=== PATIENT | female | born 1965 | race Caucasian/White ===

== ENCOUNTER → 2016-05-06 | Outpatient (CLI) | payer BC ==
[~2016-05-06] MED LIST: EFF/375 PO; IBUP600T44 PO; LISI-729 PO
== END | disposition home or self-care (01) ==
LOC: C.PATHSPEC 10:57
PROVIDERS: ATTEND Obstetrics & Gynecology
DX: R87.613 High grade squamous intraepithelial lesion on cytologic smear of cervix (HGSIL) (principal); N87.1 Moderate cervical dysplasia

== ENCOUNTER 2016-06-26 10:58 | Emergency (ER) | payer BC ==
[~2016-06-26] VITALS: Ht 162.6 cm; Wt 73.3 kg
[2016-06-26 11:06] VITALS: TEMP 36.8; Ht 162.6 cm; Wt 73.3 kg
[2016-06-26] MEDS ORDERED: IBUPROFEN 600 MG TAB PO STA (11:20)
[2016-06-26] MEDS ORDERED: EFF/375 PO (11:25)
[2016-06-26] MEDS ORDERED: LISI-729 PO (11:25)
--- NOTE | 2016-06-26 11:46 | EMERGENCY ROOM VISIT NOTE ---
History Report prepared by Gabriele: Shalini Monsalve Under the Supervision of: Dr. Alexander Walsh M.D. First contact with patient: 11:15 Chief Complaint: ANKLE PAIN Stated Complaint: FALL/ANKLE PAIN History of Present Illness The patient is a 50 year old female who presents to the Emergency Room with complaints of persistent bilateral ankle pain starting 0545 this morning. She presents to the ED by EMS and received fentanyl en route. She fell down 3-4 steps. She did not fall head over heels but landed on her side. She heard some cracking on the way down. She was initially able to get herself to her bed, but upon waking up later she was unable to walk. She reports pain on the outside of her ankles and swelling. Her left ankle is worse than her right. She denies any knee, hip, back, arm, neck, head, or chest injury. She is not on any blood thinners. Source of History: patient Onset: 0545 this morning Position: ankle (bilateral) Quality: other (pain, swelling) Timing: other (persistent) Associated Symptoms: No back pain, No chest pain, No neck pain Note: Pt denies any knee, hip, arm, or head injury Review of Systems See HPI for pertinent positives & negatives. A total of 10 systems reviewed and were otherwise negative. Past Medical & Surgical Medical Problems: (1) Hypertension Family History No pertinent family history stated. Social History Smoking Status: Never Smoker Marital Status: Occupation Status: employed Current/Historical Medications Scheduled Lisinopril (Prinivil), 1 TAB PO DAILY Venlafaxine Hcl (Effexor), 37.5 MG PO DAILY Scheduled PRN Ibuprofen (Motrin), 600 MG PO Q6H PRN for Pain Allergies Coded Allergies: No Known Allergies (Unverified , 06/26/16) Physical Exam Vital Signs Date Time Temp Pulse Resp B/P Pulse Ox O2 Delivery O2 Flow Rate FiO2 06/26/16 13:17 85 16 149/91 99 06/26/16 11:06 36.8 74 12 135/92 100 Room Air Physical Exam GENERAL: Patient is in no acute distress. HEENT: No acute trauma, normocephalic atraumatic, mucous membranes moist, no nasal congestion, no scleral icterus. NECK: No stridor, no adenopathy, no meningismus, trachea is midline, no posterior C spine tenderness. LUNGS: Clear to auscultation bilaterally, no wheeze, no rhonchi, breath sounds equal. HEART: Without murmurs gallops or rubs, regular rate and rhythm. ABDOMEN: Soft, nontender, bowel sounds positive, no hernias, no peritonitis. EXTREMITIES: No evidence for upper extremity trauma, swelling and tenderness to both lateral ankles, no gross deformities, both knees and feet are nontender. NEUROLOGIC: Oriented x 3, no acute motor or sensory deficits, no focal weakness. SKIN: No rash, no jaundice, no diaphoresis. Medical Decision & Procedures ER Provider Diagnostic Interpretation: X-ray results as stated below per interpretation by me and the radiologist: LEFT ANKLE MIN 3 VIEWS ROUTINE CLINICAL HISTORY: FALL, PAIN COMPARISON: None. DISCUSSION: Oblique nondisplaced fracture distal fibula. Mild associated soft tissue edema. Ankle mortise is aligned anatomically. The subtalar joint is intact. IMPRESSION: Nondisplaced oblique fracture distal fibula Electronically signed by: Garcia Meyer M.D. 06/26/2016 12:10 PM Dictated Date/Time: 06/26/2016 12:09 PM RIGHT ANKLE MIN 3 VIEWS ROUTINE CLINICAL HISTORY: FALL, PAIN Right pain COMPARISON: None. DISCUSSION: The bones and joint spaces appear intact. There is no evidence of fracture, dislocation or bony disease. There is no evidence for soft tissue swelling. IMPRESSION: Negative study. Electronically signed by: Garcia Meyer M.D. 06/26/2016 12:09 PM Dictated Date/Time: 06/26/2016 12:08 PM Medications Administered Medications (Trade) Dose Ordered Sig/Dylan Route Start Time Stop Time Status Last Admin Dose Admin Ibuprofen (Motrin Tab) 600 mg NOW STAT PO 06/26/16 11:20 06/26/16 11:21 DC 06/26/16 11:32 600 MG ED Course 1118: The patient was evaluated in room B3. A complete history and physical exam was performed. 1120: Ibuprofen 600 mg PO. 1236: I reevaluated the patient. I discussed results and discharge instructions : she verbalized understanding and agreement. The patient is ready for discharge. Medical Decision Differential diagnoses considered include ankle sprain or fracture, foot fracture, knee fracture; head, neck, or chest trauma. The patient presents with left more so than right ankle pain. She had fallen several hours ago. There is no evidence clinically for injury to the head, neck , chest, back, abdomen or upper extremities. The hips and knees seem uninjured. Films of the ankles were done, there is an oblique fracture to the left distal fibula, no significant bony dislocation. The right ankle is without fracture. On exam, the patient was neurovascularly intact distally in the lower extremities. The patient was given oral Motrin, she was given ice packs. She had a splint applied to the left ankle, she was given crutches. The patient is being discharged to follow with orthopedics. She is to stay off of the foot and keep it elevated. Impression Primary Impression: Ankle fracture, left Additional Impressions: Right ankle sprain Fall Scribe Attestation The scribe's documentation has been prepared under my direction and personally reviewed by me in its entirety. I confirm that the note above accurately reflects all work, treatment, procedures, and medical decision making performed by me. Departure Information Dispostion Home / Self-Care Prescriptions Ibuprofen (Motrin) 600 Mg Tab 600 MG PO Q6H Y for Pain, #20 TAB With Food Prov: Alexander Walsh M.D. 06/26/16 Referrals Terri Deng (PCP) Forms HOME CARE DOCUMENTATION FORM, IMPORTANT VISIT INFORMATION Patient Instructions My [facility] [employer] Additional Instructions motrin 600 mg every 6 hours as needed for pain tylenol for pain also can be use wear splint for now use crutches keep the leg elevated call orthopedics Tuesday for an appt return if worsening Problem Qualifiers
--- NOTE | 2016-06-26 12:10 | DIAGNOSTIC IMAGING REPORT ---
RIGHT ANKLE MIN 3 VIEWS ROUTINE CLINICAL HISTORY: FALL, PAIN Right pain COMPARISON: None. DISCUSSION: The bones and joint spaces appear intact. There is no evidence of fracture, dislocation or bony disease. There is no evidence for soft tissue swelling. IMPRESSION: Negative study. Electronically signed by: Garcia Meyer M.D. 06/26/2016 12:09 PM Dictated Date/Time: 06/26/2016 12:08 PM
--- NOTE | 2016-06-26 12:11 | DIAGNOSTIC IMAGING REPORT ---
LEFT ANKLE MIN 3 VIEWS ROUTINE CLINICAL HISTORY: FALL, PAIN COMPARISON: None. DISCUSSION: Oblique nondisplaced fracture distal fibula. Mild associated soft tissue edema. Ankle mortise is aligned anatomically. The subtalar joint is intact. IMPRESSION: Nondisplaced oblique fracture distal fibula Electronically signed by: Garcia Meyer M.D. 06/26/2016 12:10 PM Dictated Date/Time: 06/26/2016 12:09 PM
[2016-06-26] MEDS ORDERED: IBUP600T44 PO (12:40)
[2016-06-26 13:17] VITALS: BP 149/91; PULSE 85; O2SAT 99
== END 2016-06-26 13:18 | disposition home or self-care (01) ==
LOC: EDBD 10:58 → C.EDB 10:59
DX: S82.892A Other fracture of left lower leg, initial encounter for closed fracture (principal); S93.401A Sprain of unspecified ligament of right ankle, initial encounter; W10.8XXA Fall (on) (from) other stairs and steps, initial encounter; I10 Essential (primary) hypertension

== ENCOUNTER 2019-04-15 18:59 | Inpatient (IN) ==
[2019-04-15] MEDS ORDERED: fentaNYL citrate 100 MCG/2 ML VIAL IV STA ×2 (19:15→20:35)
[2019-04-15] MEDS ORDERED: ONDANSETRON INJ 2 MG/ML 2 ML VIAL IV STA (19:15)
[2019-04-15 19:21] LABS: Basophils # (auto) 0.02 K/uL (0-0.2); Basophils % (auto) 0.3 %; Eosinophils # (auto) 0.09 K/uL (0-0.5); Eosinophils % (auto) 1.2 %; Hematocrit (blood only) 38.4 % (37-47); Hemoglobin 13.7 g/dL (12.0-16.0); Immature Granulocytes # (auto) 0.01 K/uL (0.00-0.02); Immature Granulocytes % (auto) 0.1 %; Lymphocytes # (auto) 2.75 K/uL (1.2-3.4); Lymphocytes % (auto) 37.2 %; Mean Corpuscular Hemoglobin 32.3 pg (25-34); Mean Corpuscular Hgb Conc 35.7 g/dL (32-36); Mean Corpuscular Volume 90.6 fL (80-100); Monocytes # (auto) 0.52 K/uL (0.11-0.59); Neutrophils # (auto) 4.01 K/uL (1.4-6.5); Neutrophils % (auto) 54.2 %; Platelet Count 224 K/uL (130-400); RDW Coefficient of Variation 11.7 % (11.5-14.5); RDW Standard Deviation 38.9 fL (36.4-46.3); Red Blood Count 4.24 M/uL (4.2-5.4)
[2019-04-15 19:37] LABS: Albumin Level 3.6 gm/dl (3.4-5.0); Aspartate Aminotransferase 72 U/L (15-37); BUN Creatinine Ratio 22.2 (10-20); Blood Urea Nitrogen 19 mg/dl (7-18); Calcium 9.6 mg/dl (8.5-10.1); Carbon Dioxide 28 mmol/L (21-32); Chloride 105 mmol/L (98-107); Creatinine Clr Calc Pharmacy 80.3 ml/min; Est GFR (African American) 91.3; Est GFR (Non-African American) 78.8; Glucose 116 mg/dl (70-99); Lipase 237 U/L (73-393); Potassium 3.4 mmol/L (3.5-5.1); Sodium 138 mmol/L (136-145)
--- NOTE | 2019-04-15 19:39 | XRay Report ---
SINGLE VIEW CHEST CLINICAL HISTORY: Atypical chest pain. FINDINGS: An AP, portable, upright chest radiograph is obtained. No prior studies are available for c omparison at the time of dictation. The examination is degraded by portable technique and patient rot ation. The cardiomediastinal silhouette is unremarkable. There is mild bibasilar atelectasis. The radha ngs and pleural spaces are otherwise clear. No pneumothorax is seen. The bony thorax is grossly intac t. IMPRESSION: No active disease in the chest. ACT 112: Negative or not required by law. Electronically signed by: Alexander Anne M.D. 04/15/2019 7:37 PM
[2019-04-15 19:42] LABS: Alanine Aminotransferase 56 U/L (12-78); Albumin Globulin Ratio 0.9 (0.9-2); Alkaline Phosphatase 83 U/L (45-117); Bilirubin,Total 0.3 mg/dl (0.2-1); Total Protein 7.6 gm/dl (6.4-8.2); Troponin I < 0.015 ng/ml (0-0.045)
[2019-04-15 19:43] LABS: iSTAT Creatinine 0.8 mg/dl (0.6-1.3); iSTAT Hemoglobin 13.3 g/dl (12.0-16.0); iSTAT Ionized Calcium 1.2 mmol/l (1.12-1.32); iSTAT Potassium 3.4 mmol/L (3.3-5.0)
[2019-04-15 19:52] LABS: Partial Thromboplastin Ratio 0.9; Partial Thromboplastin Time 25.9 Seconds (21.0-31.0); Prothrombin Time 10.7 Seconds (9.0-12.0)
[2019-04-15] MEDS ORDERED: OPTIRAY 320 125ml IV PRN (19:54)
--- NOTE | 2019-04-15 20:12 | CT Scan Report ---
CT ANGIOGRAM OF THE CHEST COMBO; CT ANGIOGRAM OF THE ABDOMEN AND PELVIS CLINICAL HISTORY: Atypical chest pain. Back pain. COMPARISON STUDY: Chest x-ray dated 04/15/2019. TECHNIQUE: Unenhanced axial CT of the chest is obtained. Following the IV administration of 119 cc of Optiray 320, CT angiogram of the chest, abdomen, and pelvis was performed from the thoracic inlet to the proximal femora. Images are reviewed in the axial, sagittal, and coronal planes. 3-D MIPS images are created and assessed. IV contrast was administered without complication. A dose lowering techniq ue was utilized adhering to the principles of ALARA. CT DOSE: 980.49 mGy.cm FINDINGS: CHEST: Thyroid: Imaged portions of the thyroid gland are normal in size and attenuation. Thoracic aorta: No intramural hematoma is seen on the unenhanced series. The thoracic aorta is normal in course and caliber. The aortic arch demonstrates standard 3-vessel anatomy. No dissection is seen . The arch vessels are widely patent. Pulmonary vasculature: The pulmonary trunk is normal in caliber. There are no filling defects identif ied in the main, lobar, or segmental pulmonary vessels to suggest pulmonary embolus. Heart: The heart is normal in size and configuration, and without pericardial effusion. Lungs and pleural spaces: The lungs and pleural spaces are clear noting dependent atelectasis. The tr achea and central airways are patent. Mediastinum: There is no mediastinal lymphadenopathy. Jocelyn: Clear. Axillae: There is no axillary lymphadenopathy. Bony thorax: No destructive bony lesions are identified. ABDOMEN AND PELVIS: Liver: The contrast-enhanced liver is normal in size, contour, and attenuation. There is no intrahepa tic biliary ductal dilatation. Gallbladder: Gallstones are noted. There is no CT evidence of acute cholecystitis. Spleen: Normal in size and attenuation noting heterogeneous arterial phase enhancement. Pancreas: Unremarkable. Adrenal glands: Unremarkable. Kidneys: The contrast enhanced kidneys are normal in size and without hydronephrosis. The kidneys enh ance symmetrically. Abdominal aorta and iliac arteries: The abdominal aorta is normal in course and caliber. No dissectio n is seen. The iliac arteries are widely patent bilaterally. Major branches of the abdominal aorta: The celiac trunk, superior mesenteric, and inferior mesenteric arteries are widely patent. Hepatic arterial anatomy is conventional. The splenic artery is patent. Single bilateral renal arteries are widely patent. Bowel: There is mild colonic fecal retention. No bowel obstruction is seen. The appendix is well-vis ualized and normal. Peritoneum: There is no intraperitoneal free air or abdominal ascites. Lymphadenopathy: None. Pelvic viscera: The bladder, uterus, and adnexa are normal as visualized. Skeletal structures: No destructive bony lesions are seen. IMPRESSION: 1. There is no aneurysm or dissection seen involving the thoracic or abdominal aorta. 2. There is no evidence of pulmonary embolus in the main, lobar, or segmental pulmonary arteries. 3. The lungs are clear 4. Unremarkable CT angiogram of the major branches of the abdominal aorta. 5. No acute infectious or inflammatory findings are identified in the abdomen or pelvis. 6. Cholelithiasis. 7. Additional findings as above. ACT 112: Negative or not required by law. Electronically signed by: Alexander Anne M.D. 04/15/2019 8:11 PM
[2019-04-15] MEDS ORDERED: KETOROLAC TROMETHAMINE 15 MG/ML VIAL IV STA (20:35)
[2019-04-15] MEDS ORDERED: FAMOTIDINE 20MG IV PUSH 20 MG/5 ML SYR IV STA (20:35)
[2019-04-15] MEDS ORDERED: DICYCLOMINE HCL 10 MG CAP PO ONE (20:35)
[2019-04-15] MEDS ORDERED: ASPIRIN 81 MG CHEW PO STA (20:51)
--- NOTE | 2019-04-15 20:56 | History & Physical Report ---
Date of Service April 15, 2019 Assessment & Plan (1) Atypical chest pain: Admit to PCU on telemetry for observation for atypical chest pain, Vital signs every 4 hours, Given aspirin 324 mg x 1 in the ER Continue aspirin 81 mg p.o. every morning, Lipid panel pending Hemoglobin A1c pending Troponin x3 with EKG to rule out acute coronary syndrome, TTE pending, based on results consider consulting cardiology in a.m., Continue Nitropaste or nitroglycerin for chest pain and give only if blood p ressure is above 120/80 Continue monitoring blood pressure every 4 hours, Continue home medicine lisinopril 10 mg p.o. every morning, Started hydralazine 5 mg p.o. 3 times daily as needed for elevated blood pressure above 160/90. DVT prophylaxis Lovenox 40 mg subacute daily, Full code Present on Admission?: Yes (2) Abdominal pain: Patient received pain management with ketorolac 15 mg IV x1, fentanyl 50 MCG's x2, Zofran 4 mg IV x1 famotidine 20 mg IV x1 , and Bentyl 10 mg p.o. x1 in the ER Patient states that this regimen helped her pain, Pending KUB since patient abdomen is mildly distended and tender on palpation. No rebound tenderness noted or guarding. Patient states that she feels very gassy. Continue pain management and antinausea management. Abdominal pain could be related to constipation or indigestion. If KUB positive for constipation MiraLAX powder 17 g p.o. daily as needed is ordered, Continue Bentyl 10 mg p.o. twice daily, For pain Toradol 15 mg IV every 6 hours, Present on Admission?: Yes (3) Hypertension: Continue lisinopril 10 mg p.o. every morning, Continue monitoring states blood pressure was mildly elevated in the ER every 4 hours Present on Admission?: Yes (4) Depression: Stable, continue venlafaxine 37.5 mg p.o. every morning. Present on Admission?: Yes (5) Hypokalemia: Potassium is 3.4, replenished with normal saline +20 M EQ of KCl at 80 cc/h for 1 L. Repeat potassium in a.m. and replenish as necessary. Present on Admission?: Yes History of Present Illness Chief Complaint: Chest pain Primary Care Provider: ASUNCION Perez The patient is a 53 years old female with past medical history of hypertension and depression who presents to the emergency room with a complaint of chest pain that started this morning first in her back and then radiated to her middle chest and then settled down in her abdomen. Patient reports having 1 bowel movement yesterday. Patient said that this is normal for her. Patient also said that this pain occurred all of a sudden and lasted pretty much several hours. Patient denies smoking history. Denies any recent sick contact or travel. Patient denies fever, chills, abdominal pain, frequency, urgency, syncope, near syncope. The labs are reviewed: Sodium 138, potassium 3.4, chlo ride 105, anion gap 5, BUN 19, creatinine 0.84, GFR 78.8, calcium 9.6, total bilirubin 0.3, AST 72, ALT 56, alkaline phosphatase 83, troponin 0.015, total protein 7.6, albumin 3.6, globulin 4, lipase 237, TSH pending. CTA of the chest there is no aneurysm or dissection seen involving the thoracic or abdominal aorta. There is no evidence of pulmonary embolus in the main lobar or segmental pulmonary arteries. The lungs are clear. Unremarkable CT angiogram of the major branches of the abdominal aorta. No acute infectious or or inflammatory findings are identified in the abdomen or pelvis, cholelithiasis. Chest x-ray showed no active disease in the chest. The decision was made to admit patient to PCU on telemetry for observation of the chest pain versus acute coronary syndrome. Allergies Allergy/AdvReac Type Severity Reaction Status Date / Time No Known Allergies Allergy Verified 04/15/19 19:33 Home Medications Home Medications Medication Instructions Recorded Confirmed Type lisinopril 10 mg PO QAM 04/15/19 04/15/19 History venlafaxine 37.5 mg PO QAM 04/15/19 04/15/19 History Past Med/Surg History Medical History Hypertension (Chronic) Family History Other No significant family history Social History Preferred Language: Divehi Feels Safe at Home: Yes Smoking Status: Never smoker Review of Systems Review of Systems: All systems reviewed & are unremarkable except as noted in HPI & below Physical Exam Constitutional: WD/WN, vitals as above well developed and + ill appearing Eyes: PERRL, conjunctivae normal, anicteric sclerae ENMT: external ear and nose normal, oropharynx normal Neck: trachea midline, no thyromegaly Respiratory: normal respiratory effort, lungs clear to auscultation Cardiovascular: RRR, no murmur, no edema Gastrointestinal (Abdomen): Inspection/Auscultation: + abdomen distended Percussion/Palpation: + abdomen tender, abdomen soft and + tympanic to percussion Musculoskeletal: no cyanosis or clubbing, extremities motor strength 5/5 Skin: no rashes, warm and dry Neurologic: patellar DTR's 2+ bilat, sensation intact Lymphatic: no cervical or axillary lymphadenopathy Results & Data Vital Signs (Past 12 Hours) Vital Signs Temp Pulse Resp BP Pulse Ox 04/15/19 19:33 99 04/15/19 19:07 36.3 C L 79 18 161/100 H 99 Code Status & VTE Plan Code Status Full code VTE Prophylaxis Plan VTE Prophylaxis will be ordered: Yes PG Care Time/CCT Total # of Minutes Spent Total Time Spent with Patient: Total time spent is greater than 50% in coordination of care (as documented) at patient's floor/unit and/or counseling patient: Coding Level of Care Code 89248 Initial Inpt Care Lvl 3 Diagnoses Atypical chest pain R07.89 Abdominal pain R10.9 Abdominal location: unspecified location Hypertension I10 Depression F32.9 Hypokalemia E87.6 (1) Abdominal pain Abdominal location: unspecified location Qualified Code(s): R10.9 - Unspecified abdominal pain
[2019-04-15] MEDS ORDERED: ONDANSETRON INJ 2 MG/ML 2 ML VIAL IV PRN (22:02)
[2019-04-15] MEDS ORDERED: MAGNESIUM HYDROXIDE SUSP 30 ML UDC PO PRN (22:02)
[2019-04-15] MEDS ORDERED: ACETAMINOPHEN 325 MG TAB PO PRN (22:02)
[2019-04-15] MEDS ORDERED: NSS + 20MEQ KCL 20 MEQ/1,000 ML BAG IV SCH (22:02)
[2019-04-15] MEDS ORDERED: HydrALAZINE 10 MG TAB PO PRN (22:02)
[2019-04-15] MEDS ORDERED: NITROGLYCERIN SL 0.4 MG/TAB TAB SL PRN ×2 (22:02)
[2019-04-15] MEDS ORDERED: FAMOTIDINE 20 MG in SYRINGE 3 ML IV SCH (22:02)
[2019-04-15] MEDS ORDERED: ALUMINUM/MAGNESIUM SUSP 30 ML UDC PO PRN (22:02)
[2019-04-15] MEDS ORDERED: POLYETHYLENE (MIRALAX) 17 GM PACK PO PRN (22:02)
--- NOTE | 2019-04-15 22:04 | Emergency Department Note ---
Entered by Erika Khan acting as a scribe for Daniele Correa M.D. History of Present Illness General Chief complaint: Chest Pain Stated complaint: BACK PAIN, UPPER GASTRIC PAIN, MILD SOB Time Seen by Provider: 04/15/19 19:08 Source: patient History of Present Illness Onset (ago): hour(s) (earlier today) Location: chest Pain Consistency: + other (worsening) Current Pain Intensity: 9 Quality: + other (tightness) Associated symptoms: + denies other symptoms (leg pain), + diaphoresis and + nausea/vomiting (nausea); no cough and no fever/chills The patient is a 53 year old F who presents to the Emergency Room with complaints of worsening chest pain that started earlier today. The patient states that she was doing some light cleaning today. She notes that she then started to experience pain in the middle of her back. She adds that the pain radiated to her upper abdomen. She notes that she then developed chest pain. She describes her pain as a tightness. She rates her current pain as 9 out of 10. She states that she was given aspirin and nitroglycerin in the ambulance to no relief. She notes that she is also currently experiencing nausea and sweating. She states that she has never experienced these symptoms before. She denies that she is currently experiencing a fever, coughing, and leg pain. She states that she has a family history of heart disease. She notes that 5 months ago, she was started on a heart loop monitor, by her closing agent, Dr. Khan, due to experiencing arrhythmias. She notes that she has a history of HTN. She adds that she took her medications today, including Lisinopril. She denies a history of drinking alcohol, smoking, and being on any recent travel. Home Medications Home Medications Medication Instructions Recorded Confirmed Type lisinopril 10 mg PO QAM 04/15/19 04/15/19 History venlafaxine 37.5 mg PO QAM 04/15/19 04/15/19 History Allergies Allergy/AdvReac Type Severity Reaction Status Date / Time No Known Allergies Allergy Verified 04/15/19 19:33 Past Med/Surg History Medical History Hypertension (Chronic) Family History Other No significant family history Social History Preferred Language: [place] Feels Safe at Home: Yes Smoking Status: Never smoker Review of Systems See HPI for pertinent positives & negatives. and A total of 10 systems reviewed and were otherwise negative Physical Exam Vital Signs Vital Signs - 24 hr 04/15/19 19:07 04/15/19 19:15 04/15/19 19:33 Temperature 36.3 C L Temperature Source Oral Pulse Rate 79 Respiratory Rate 18 Respiratory Effort / Characteristics Non-Labored Respiratory Depth Normal Blood Pressure 161/100 H Blood Pressure Mean 120 Pulse Oximetry 99 99 Oxygen Delivery Method Room Air Room Air Room Air Sepsis Recent Fever Within 48 Hours No Sepsis New/Unexplained Change in Mental Status No Sepsis Action Taken by Nursing No Action Required GENERAL: Awake, alert, uncomfortable-appearing, writhing in bed HENT: Normocephalic, atraumatic. EYES: Normal conjunctiva. Sclera non-icteric. RESPIRATORY: Clear to auscultation. No wheezes. Normal respiratory effort. CARDIAC: Normal rate. Normal rhythm. Extremities warm and well perfused. GI: Soft, non-distended. Mild epigastric tenderness to palpation. No rebound or guarding. No masses. MUSCULOSKELETAL: Atraumatic. Chest examination reveals no tenderness. NEURO: Normal sensorium. No sensory or motor deficits noted. No facial droop. SKIN: Warm and dry. No rash or jaundice noted. Course Course 1909: The patient was evaluated in room B9. A complete history and physical exam was performed. 2026: I updated the patient on her test results and let her know of the plan for admission. 2038: I reviewed the patient's case with Dr. Malka Colbert, [facility] Hospitalist. She will evaluate the patient for further management. Administered Medications Discontinued Medications Aspirin (Aspirin Chew) 324 mg PO NOW STA Stop: 04/15/19 20:52 Last Admin: 04/15/19 21:17 Dose: 324 mg Documented by: [id number] Dicyclomine HCl (Bentyl) 10 mg PO NOW ONE Stop: 04/15/19 20:36 Last Admin: 04/15/19 20:45 Dose: 10 mg Documented by: [id number] Fentanyl Citrate (Fentanyl Citrate) 50 mcg IV NOW STA Stop: 04/15/19 19:16 Last Admin: 04/15/19 19:22 Dose: 50 mcg Documented by: [id number] Fentanyl Citrate (Fentanyl Citrate) 50 mcg IV NOW STA Stop: 04/15/19 20:36 Last Admin: 04/15/19 20:45 Dose: 50 mcg Documented by: [id number] Famotidine (Pepcid 20mg Iv Push) 20 mg in 5 mls @ 2.5 mls/min IV NOW STA Stop: 04/15/19 20:36 Last Admin: 04/15/19 20:45 Dose: 2.5 mls/min Documented by: [id number] Ioversol (Optiray 320 125ml) 119 ml IV ONCE PRN PRN Reason: Interaction Checking Stop: 04/19/19 19:53 Last Admin: 04/15/19 19:54 Dose: 119 ml Documented by: [id number] Ketorolac Tromethamine (Toradol) 15 mg IV NOW STA Stop: 04/15/19 20:36 Last Admin: 04/15/19 20:45 Dose: 15 mg Documented by: [id number] Ondansetron HCl (Zofran) 4 mg IV NOW STA Stop: 04/15/19 19:16 Last Admin: 04/15/19 19:22 Dose: 4 mg Documented by: [id number] Medical Decision Making Differential Diagnosis Differential diagnosis: Etiologies such as cardiac ischemia, aortic dissection, pulmonary embolism, pneumonia, pneumothorax, musculoskeletal, infections, pericarditis, myocarditis, esophageal rupture, gastrointestinal, as well as others were entertained. Medical Records Attestation: I reviewed the patient's medical records. Home Medications Current Medication List: was personally reviewed by me Laboratory Data Attestation: I reviewed the patient's lab results. Result diagrams: 04/15/19 18:55 04/15/19 18:55 Lab Results 04/15/19 04/15/19 04/15/19 Range/Units 18:55 18:55 18:55 WBC 7.40 (4.8-10.8) K/uL RBC 4.24 (4.2-5.4) M/uL Hgb 13.7 (12.0-16.0) g/dL POC Hgb (12.0-16.0) g/dl Hct 38.4 (37-47) % POC Hct (37-47) % MCV 90.6 (80-100) fL MCH 32.3 (25-34) pg MCHC 35.7 (32-36) g/dL RDW Std Deviation 38.9 (36.4-46.3) fL RDW Coeff of [place] 11.7 (11.5-14.5) % Plt Count 224 (130-400) K/uL MPV 10.0 (7.4-10.4) fL Immature Gran % (Auto) 0.1 % Neut % (Auto) 54.2 % Lymph % (Auto) 37.2 % [place] % (Auto) 7.0 % Eos % (Auto) 1.2 % Baso % (Auto) 0.3 % Immature Gran # (Auto) 0.01 (0.00-0.02) K/uL Neut # (Auto) 4.01 (1.4-6.5) K/uL Lymph # (Auto) 2.75 (1.2-3.4) K/uL [place] # (Auto) 0.52 (0.11-0.59) K/uL Eos # (Auto) 0.09 (0-0.5) K/uL Baso # (Auto) 0.02 (0-0.2) K/uL PT Cancelled INR Cancelled APTT Cancelled PTT Ratio Cancelled POC Sodium (135-144) mmol/L Sodium 138 (136-145) mmol/L POC Potassium (3.3-5.0) mmol/L Potassium 3.4 L (3.5-5.1) mmol/L POC Chloride (101-112) mmol/L Chloride 105 (98-107) mmol/L Carbon Dioxide 28 (21-32) mmol/L POC Total CO2 (24-31) mEq/l Anion Gap 5.0 (3-11) POC Anion Gap (16-25) mmol/L POC BUN (7-18) mg/dl BUN 19 H (7-18) mg/dl Creatinine 0.84 (0.6-1.2) mg/dl POC Creatinine (0.6-1.3) mg/dl Est Cr Clr Drug Dosing 80.3 ml/min Est GFR ( Amer) 91.3 Est GFR (Non-Af Amer) 78.8 BUN/Creatinine Ratio 22.2 H (10-20) Glucose 116 H (70-99) mg/dl POC Glucose (other) (70-99) mg/dl Calcium 9.6 (8.5-10.1) mg/dl POC Ioniz Calcium Rebel (1.12-1.32) mmol/l Total Bilirubin 0.3 (0.2-1) mg/dl AST 72 H (15-37) U/L ALT 56 (12-78) U/L Alkaline Phosphatase 83 (45-117) U/L Troponin I < 0.015 (0-0.045) ng/ml Total Protein 7.6 (6.4-8.2) gm/dl Albumin 3.6 (3.4-5.0) gm/dl Globulin 4.0 (2.5-4.0) gm/dl Albumin/Globulin Ratio 0.9 (0.9-2) Lipase 237 (73-393) U/L 04/15/19 04/15/19 Range/Units 19:28 19:36 WBC (4.8-10.8) K/uL RBC (4.2-5.4) M/uL Hgb (12.0-16.0) g/dL POC Hgb 13.3 (12.0-16.0) g/dl Hct (37-47) % POC Hct 39 (37-47) % MCV (80-100) fL MCH (25-34) pg MCHC (32-36) g/dL RDW Std Deviation (36.4-46.3) fL RDW Coeff of [place] (11.5-14.5) % Plt Count (130-400) K/uL MPV (7.4-10.4) fL Immature Gran % (Auto) % Neut % (Auto) % Lymph % (Auto) % [place] % (Auto) % Eos % (Auto) % Baso % (Auto) % Immature Gran # (Auto) (0.00-0.02) K/uL Neut # (Auto) (1.4-6.5) K/uL Lymph # (Auto) (1.2-3.4) K/uL [place] # (Auto) (0.11-0.59) K/uL Eos # (Auto) (0-0.5) K/uL Baso # (Auto) (0-0.2) K/uL PT 10.7 INR 1.0 APTT 25.9 PTT Ratio 0.9 POC Sodium 138 (135-144) mmol/L Sodium (136-145) mmol/L POC Potassium 3.4 (3.3-5.0) mmol/L Potassium (3.5-5.1) mmol/L POC Chloride 103 (101-112) mmol/L Chloride (98-107) mmol/L Carbon Dioxide (21-32) mmol/L POC Total CO2 27 (24-31) mEq/l Anion Gap (3-11) POC Anion Gap 12.0 L (16-25) mmol/L POC BUN 18 (7-18) mg/dl BUN (7-18) mg/dl Creatinine (0.6-1.2) mg/dl POC Creatinine 0.8 (0.6-1.3) mg/dl Est Cr Clr Drug Dosing ml/min Est GFR ( Amer) Est GFR (Non-Af Amer) BUN/Creatinine Ratio (10-20) Glucose (70-99) mg/dl POC Glucose (other) 117 H (70-99) mg/dl Calcium (8.5-10.1) mg/dl POC Ioniz Calcium Rebel 1.20 (1.12-1.32) mmol/l Total Bilirubin (0.2-1) mg/dl AST (15-37) U/L ALT (12-78) U/L Alkaline Phosphatase (45-117) U/L Troponin I (0-0.045) ng/ml Total Protein (6.4-8.2) gm/dl Albumin (3.4-5.0) gm/dl Globulin (2.5-4.0) gm/dl Albumin/Globulin Ratio (0.9-2) Lipase (73-393) U/L Imaging Data Radiologist's Impression: Radiology results as stated below per my review and the radiologist's interpretation: CT ANGIOGRAM OF THE CHEST COMBO; CT ANGIOGRAM OF THE ABDOMEN AND PELVIS CLINICAL HISTORY: Atypical chest pain. Back pain. COMPARISON STUDY: Chest x-ray dated 04/15/2019. TECHNIQUE: Unenhanced axial CT of the chest is obtained. Following the IV administration of 119 cc of Optiray 320, CT angiogram of the chest, abdomen, and pelvis was performed from the thoracic inlet to the proximal femora. Images are reviewed in the axial, sagittal, and coronal planes. 3-D MIPS images are created and assessed. IV contrast was administered without complication. A dose lowering technique was utilized adhering to the principles of ALARA. CT DOSE: 980.49 mGy.cm FINDINGS: CHEST: Thyroid: Imaged portions of the thyroid gland are normal in size and attenuation. Thoracic aorta: No intramural hematoma is seen on the unenhanced series. The thoracic aorta is normal in course and caliber. The aortic arch demonstrates standard 3-vessel anatomy. No dissection is seen. The arch vessels are widely patent. Pulmonary vasculature: The pulmonary trunk is normal in caliber. There are no filling defects identified in the main, lobar, or segmental pulmonary vessels to suggest pulmonary embolus. Heart: The heart is normal in size and configuration, and without pericardial effusion. Lungs and pleural spaces: The lungs and pleural spaces are clear noting dependent atelectasis. The trachea and central airways are patent. Mediastinum: There is no mediastinal lymphadenopathy. Jocelyn: Clear. Axillae: There is no axillary lymphadenopathy. Bony thorax: No destructive bony lesions are identified. ABDOMEN AND PELVIS: Liver: The contrast-enhanced liver is normal in size, contour, and attenuation. There is no intrahepatic biliary ductal dilatation. Gallbladder: Gallstones are noted. There is no CT evidence of acute cholecystitis. Spleen: Normal in size and attenuation noting heterogeneous arterial phase enhancement. Pancreas: Unremarkable. Adrenal glands: Unremarkable. Kidneys: The contrast enhanced kidneys are normal in size and without hydronephrosis. The kidneys enhance symmetrically. Abdominal aorta and iliac arteries: The abdominal aorta is normal in course and caliber. No dissection is seen. The iliac arteries are widely patent bilaterally. Major branches of the abdominal aorta: The celiac trunk, superior mesenteric, and inferior mesenteric arteries are widely patent. Hepatic arterial anatomy is conventional. The splenic artery is patent. Single bilateral renal arteries are widely patent. Bowel: There is mild colonic fecal retention. No bowel obstruction is seen. The appendix is well-visualized and normal. Peritoneum: There is no intraperitoneal free air or abdominal ascites. Lymphadenopathy: None. Pelvic viscera: The bladder, uterus, and adnexa are normal as visualized. Skeletal structures: No destructive bony lesions are seen. IMPRESSION: 1. There is no aneurysm or dissection seen involving the thoracic or abdominal aorta. 2. There is no evidence of pulmonary embolus in the main, lobar, or segmental pulmonary arteries. 3. The lungs are clear 4. Unremarkable CT angiogram of the major branches of the abdominal aorta. 5. No acute infectious or inflammatory findings are identified in the abdomen or pelvis. 6. Cholelithiasis. 7. Additional findings as above. ACT 112: Negative or not required by law. Electronically signed by: Alexander Anne M.D. 04/15/2019 8:[address] ANGIOGRAM OF THE CHEST COMBO; CT ANGIOGRAM OF THE ABDOMEN AND PELVIS CLINICAL HISTORY: Atypical chest pain. Back pain. COMPARISON STUDY: Chest x-ray dated 04/15/2019. TECHNIQUE: Unenhanced axial CT of the chest is obtained. Following the IV administration of 119 cc of Optiray 320, CT angiogram of the chest, abdomen, and pelvis was performed from the thoracic inlet to the proximal femora. Images are reviewed in the axial, sagittal, and coronal planes. 3-D MIPS images are created and assessed. IV contrast was administered without complication. A dose lowering technique was utilized adhering to the principles of ALARA. CT DOSE: 980.49 mGy.cm FINDINGS: CHEST: Thyroid: Imaged portions of the thyroid gland are normal in size and attenuation. Thoracic aorta: No intramural hematoma is seen on the unenhanced series. The thoracic aorta is normal in course and caliber. The aortic arch demonstrates standard 3-vessel anatomy. No dissection is seen. The arch vessels are widely patent. Pulmonary vasculature: The pulmonary trunk is normal in caliber. There are no filling defects identified in the main, lobar, or segmental pulmonary vessels to suggest pulmonary embolus. Heart: The heart is normal in size and configuration, and without pericardial effusion. Lungs and pleural spaces: The lungs and pleural spaces are clear noting dependent atelectasis. The trachea and central airways are patent. Mediastinum: There is no mediastinal lymphadenopathy. Jocelyn: Clear. Axillae: There is no axillary lymphadenopathy. Bony thorax: No destructive bony lesions are identified. ABDOMEN AND PELVIS: Liver: The contrast-enhanced liver is normal in size, contour, and attenuation. There is no intrahepatic biliary ductal dilatation. Gallbladder: Gallstones are noted. There is no CT evidence of acute cholecystitis. Spleen: Normal in size and attenuation noting heterogeneous arterial phase enhancement. Pancreas: Unremarkable. Adrenal glands: Unremarkable. Kidneys: The contrast enhanced kidneys are normal in size and without hydronephrosis. The kidneys enhance symmetrically. Abdominal aorta and iliac arteries: The abdominal aorta is normal in course and caliber. No dissection is seen. The iliac arteries are widely patent bilaterally. Major branches of the abdominal aorta: The celiac trunk, superior mesenteric, and inferior mesenteric arteries are widely patent. Hepatic arterial anatomy is conventional. The splenic artery is patent. Single bilateral renal arteries are widely patent. Bowel: There is mild colonic fecal retention. No bowel obstruction is seen. The appendix is well-visualized and normal. Peritoneum: There is no intraperitoneal free air or abdominal ascites. Lymphadenopathy: None. Pelvic viscera: The bladder, uterus, and adnexa are normal as visualized. Skeletal structures: No destructive bony lesions are seen. IMPRESSION: 1. There is no aneurysm or dissection seen involving the thoracic or abdominal aorta. 2. There is no evidence of pulmonary embolus in the main, lobar, or segmental pulmonary arteries. 3. The lungs are clear 4. Unremarkable CT angiogram of the major branches of the abdominal aorta. 5. No acute infectious or inflammatory findings are identified in the abdomen or pelvis. 6. Cholelithiasis. 7. Additional findings as above. ACT 112: Negative or not required by law. Electronically signed by: Alexander Anne M.D. 04/15/2019 8:11 PM SINGLE VIEW CHEST CLINICAL HISTORY: Atypical chest pain. FINDINGS: An AP, portable, upright chest radiograph is obtained. No prior studies are available for comparison at the time of dictation. The examination is degraded by portable technique and patient rotation. The cardiomediastinal silhouette is unremarkable. There is mild bibasilar atelectasis. The lungs and pleural spaces are otherwise clear. No pneumothorax is seen. The bony thorax is grossly intact. IMPRESSION: No active disease in the chest. ACT 112: Negative or not required by law. Electronically signed by: Alexander Anne M.D. 04/15/2019 7:37 PM ECG Data Attestation: I personally reviewed and interpreted this ECG as follows: Indication: + chest pain Rate (beats per minute): 87 Rhythm: + normal sinus ECG Intervals/blocks: + Normal QT-c ECG [place]: + Normal ECG ST segments: no ST depression and no ST elevation ECG Findings: no PVCs Blood Pressure Blood Pressure Findings: Elevated blood pressure Blood Pressure Disposition: further management by hospitalist PAGE Fuchs Continuous Cardiac Monitoring: An order was placed for continuous cardiac monitoring. The monitor shows a rate of 81 with NSR Patient is a 53-year-old female with a history of hypertension presenting via ambulance today with a complaint of epigastric/chest pain, shortness of breath, back pain, and some nausea. Patient was doing a little bit of light housework folding some clothes with the onset of mid back pain that quickly rate around the midepigastrium now in the epigastrium and mid lower central chest. Patient appears quite uncomfortable on the stretcher and is somewhat writhing. EMS gave aspirin nitroglycerin fentanyl and Zofran with minimal change in symptomatologies. Patient is hypertensive upon arrival 161/100. No fevers reported or trauma. Given some additional Zofran and fentanyl to help with her pain which is fairly severe. CT scan of the chest abdomen pelvis was completed to exclude aortic pathology among other items. EKG without significant change. Troponin was sent. Lower suspicion this is acute PE. No evidence of acute pancreatitis or hepatitis. No evidence appendicitis. Doubt this is chol ecystitis. Reassessed and updated the patient and her family. Given some Bentyl, Pepcid a little bit more fentanyl as well as some Toradol for additional symptom control. Given persistence of symptoms and fairly sudden onset discussed with the hospitalist for further cardiac evaluation and inpatient management. Impression & Plan Chest pain, Acute epigastric pain Discharge Plan Visit Data *Final* Discharge Date/Time: 04/15/19 21:32 Chief Complaint: Chest Pain Stated Complaint: BACK PAIN, UPPER GASTRIC PAIN, MILD SOB ED Provider: Daniele Correa Discharge Problem: Chest pain, Acute epigastric pain Patient Disposition: Admitted As Inpatient Discharge Instructions Interventions: ED Discharge Assessment Last Done: 04/15/19 21:32 Discharge Problem: Chest pain Qualifiers: Chest pain type: unspecified Qualified Code(s): R07.9 - Chest pain, unspecified The scribe's documentation has been prepared under my direction and personally reviewed by me in its entirety. I confirm that the note above accurately reflects all work, treatment, procedures, and medical decision making performed by me.
--- NOTE | 2019-04-15 22:22 | XRay Report ---
KUB CLINICAL HISTORY: Abdominal distention. FINDINGS: 2 AP supine abdominal radiographs are correlated with abdominal CT performed the same day . Excreted IV contrast is present within the renal collecting system and bladder. No bowel obs truction is seen. There is moderate constipation. No evidence of intraperitoneal free air is seen on these supine images. No abnormal abdominal calcifications are identified. Phleboliths are observed in the pelvis. The bony structures appear intact. IMPRESSION: Nonobstructed abdominal bowel gas pattern noting moderate constipation. No significant ch kailey from today's abdominal CT. Electronically signed by: Alexander Anne M.D. 04/15/2019 10:21 PM
[2019-04-15 22:53] LABS: NT Pro B Type Natriuretic Pept 49 pg/ml (0-900); Thyroid Stimulating Hormone 0.866 uIu/ml (0.300-4.500); Troponin I < 0.015 ng/ml (0-0.045)
[2019-04-15] MEDS: DICYCLOMINE HCL 10 MG CAP PO SCH (23:25)
[2019-04-16] MEDS: NITROGLYCERIN 2% OINTMENT 30GM TUBE EXT SCH ×3 (00:44→11:43)
[2019-04-16 04:36] LABS: Eosinophils # (auto) 0.03 K/uL (0-0.5); Eosinophils % (auto) 0.6 %; Hematocrit (blood only) 35.7 % (37-47); Hemoglobin 12.1 g/dL (12.0-16.0); Lymphocytes # (auto) 1.18 K/uL (1.2-3.4); Lymphocytes % (auto) 23.2 %; Mean Corpuscular Hemoglobin 31.1 pg (25-34); Mean Corpuscular Hgb Conc 33.9 g/dL (32-36); Mean Corpuscular Volume 91.8 fL (80-100); Mean Platelet Volume 9.6 fL (7.4-10.4); Monocytes # (auto) 0.49 K/uL (0.11-0.59); Monocytes % (auto) 9.6 %; Neutrophils # (auto) 3.39 K/uL (1.4-6.5); Neutrophils % (auto) 66.6 %; Platelet Count 212 K/uL (130-400); RDW Coefficient of Variation 11.9 % (11.5-14.5); RDW Standard Deviation 39.8 fL (36.4-46.3); Red Blood Count 3.89 M/uL (4.2-5.4); White Blood Count 5.09 K/uL (4.8-10.8)
[2019-04-16 04:58] LABS: Alanine Aminotransferase 689 U/L (12-78); Aspartate Aminotransferase 911 U/L (15-37); BUN Creatinine Ratio 19.2 (10-20); Blood Urea Nitrogen 15 mg/dl (7-18); Calcium 8.6 mg/dl (8.5-10.1); Carbon Dioxide 25 mmol/L (21-32); Chloride 110 mmol/L (98-107); Creatinine Clr Calc Pharmacy 83.6 ml/min; Est GFR (African American) 96.9; Est GFR (Non-African American) 83.6; Glucose 102 mg/dl (70-99); Potassium 4.3 mmol/L (3.5-5.1); Sodium 139 mmol/L (136-145)
[2019-04-16 05:07] LABS: Albumin Globulin Ratio 0.9 (0.9-2); Alkaline Phosphatase 110 U/L (45-117); Chol HDL Ratio 2; Cholesterol 183 mg/dl (0-200); Globulin 3.5 gm/dl (2.5-4.0); HDL Cholesterol 76 mg/dl; LDL Cholesterol Calculated 98 mg/dl; Total Protein 6.5 gm/dl (6.4-8.2); Triglycerides 46 mg/dl (0-150); Troponin I < 0.015 ng/ml (0-0.045); VLDL Cholesterol 9 mg/dl
[2019-04-16 06:20] LABS: Estimated Average Glucose 103 mg/dl; Hemoglobin A1C 5.2 % (4.5-5.6)
[2019-04-16] MEDS: VENLAFAXINE HCL 37.5 MG TAB PO SCH (08:11)
[2019-04-16] MEDS: lisinopriL 10 MG TAB PO SCH (08:11)
[2019-04-16] MEDS: ASPIRIN 81 MG ECTAB PO SCH (08:12)
[2019-04-16] MEDS: ENOXAPARIN INJ 40 MG/0.4 ML SYR SQ SCH (08:12)
[2019-04-16] MEDS: DICYCLOMINE HCL 10 MG CAP PO SCH ×2 (08:12→20:00)
[2019-04-16] MEDS: FAMOTIDINE 20 MG in SYRINGE 3 ML IV SCH ×2 (08:15→20:00)
--- NOTE | 2019-04-16 10:46 | Gastrointestinal Consultation ---
Date of Consultation April 16, 2019 Assessment & Plan (1) Acute epigastric pain: This is a 53-year-old female who presented with acute epigastric/middle back pain yesterday. She had an acute rise in her transaminases overnight, and cholelithiasis found on abdominal imaging. There is a strong suspicion she may have biliary stones/sludge causing her presentation. Today her abdominal pain is much improved, but remains to a small degree. We will plan for EUS, +/- ERCP tomorrow -Trend LFTs, CBC, BMP Continue antiemetics PRN - Continue analgesia PRN - N.p.o. after midnight Thank you for allowing us to participate in the care of this patient. Please call with any acute changes, questions or concerns. Please see addendum below with additional recommendation from my supervising physician. (2) Transaminitis: Supervising Physician Co-Signing Physician Notes I performed a history and physical examination of the patient today, including specifically on physical exam - soft abdomen. I have discussed the patient's management with the advanced practitioner. Please refer to the nurse practitioner's note for the documented findings and plan of care. 53 yrs old female patient admitted with epigastric pain, found with elevated Liver enzymes and gallstones. Recommend: EUS +/- ERCP tomorrow. History of Present Illness Reason for Consultation: elevated LFTs, cholelithiasis Attending Physician: Mercedes Walker MD History of Present Illness This is a 53-year-old female with past medical history of hypertension and depression who developed sudden onset of middle back pain and epigastric pain yesterday while doing some light housework. Pain was severe, sharp, and debilitating. On presentation to the emergency room, labs were fairly unremarkable with the exception of mild elevated AST at 72, normal ALT 56, alk phos 83, bilirubin WNL, electrolytes renal function and CBC WNL, lipase 237. CTA of the chest abdomen and pelvis revealed cholelithiasis, no acute cholecystitis. She was medicated and had improvement of her pain. This morning, her transaminases were noted to be acutely markedly elevated, with AST now 911, ALT 689, with ALP and bilirubin remain WNL. Hep C antibody negative. Hemoglobin and renal function remain stable. This morning patient tolerated some toast for breakfast. She reports that her pain is very mild and remains in the epigastric area, no longer radiating to the back. Has not had a BM since admission, normally has 1 soft brown BM daily. She did note that this morning her urine was dark/tea in color. She denies a history of liver disease, no prior abdominal surgeries or family history of liver disease. No [id number] medications, she does not take Tylenol. She drinks 3 alcoholic drinks per week. No recent travel or sick contacts. Denies any fever, rashes, nausea, vomiting, chest pain, dysphagia or heartburn, abdominal distention or cramping, no cee stools, hematochezia, melena, dysuria or hematuria. Allergies Allergy/AdvReac Type Severity Reaction Status Date / Time No Known Allergies Allergy Verified 04/15/19 19:33 Home Medications Home Medications Medication Instructions Recorded Confirmed Type lisinopril 10 mg PO QAM 04/15/19 04/15/19 History venlafaxine 37.5 mg PO QAM 04/15/19 04/15/19 History Patient History Medical History (Updated 04/16/19 @ 16:24 by Zack Garcia MD) Depression Diastolic dysfunction Grade 1, EF 45-50% Hypertension (Chronic) Hypertension Family History Other No significant family history Social History Preferred Language: Danish Communication Ability: Effective Processing Specialist Required: No Beliefs That Will Affect Care: None Current Living Situation: Family Other Information That Helps Us Care for You: No Feels Safe at Home: Yes Safety Concerns: Feels Safe At This Time Smoking Status: Never smoker Do You Dip or Chew Tobacco: No ; Second Hand Exposure: No ; Tobacco Cessation Education Requested by Patient: No Hx Alcohol Use: No Hx Substance Use: No Review of Systems Constitutional: no fever, no body aches, no malaise and no anorexia Eyes: no icterus Respiratory: no cough and no dyspnea Cardiovascular: no chest pain, no dyspnea and no edema Gastrointestinal: as per Subjective / HPI Genitourinary: no dysuria Musculoskeletal: no joint pain and no myalgia Integumentary: no rash Psychiatric: + depression on Effexor Physical Exam Constitutional: WD/WN, vitals as above well developed, well nourished and + acute distress Eyes: + anicteric sclerae Respiratory: normal respiratory effort, lungs clear to auscultation Cardiovascular: Rate/Rhythm: regular rate and regular rhythm Gastrointestinal (Abdomen): Inspection/Auscultation: abdomen normal to inspection and normal bowel sounds; abdomen not distended Percussion/Palpation: + abdomen tender (mildly tender to the RUQ/epigastrium; no reboudn, guarding, distention) Skin: no rashes, warm and dry Neurologic: moves all extremities; no focal motor deficits Speech / Cognition: + abnormal speech Psychiatric: A+Ox3, euthymic affect Results & Data ([facility]) Vital Signs (Past 12 Hours) Vital Signs Temp Pulse Pulse Resp BP Pulse Ox 04/16/19 09:40 83 04/16/19 07:03 36.5 C 68 16 111/72 98 04/16/19 02:45 36.6 C 64 16 109/64 98 04/15/19 23:05 36.6 C 76 16 118/75 98 Laboratory Results 04/16/19 04/16/19 04/16/19 Range/Units 09:53 04:13 04:13 WBC (4.8-10.8) K/uL RBC (4.2-5.4) M/uL Hgb (12.0-16.0) g/dL POC Hgb (12.0-16.0) g/dl Hct (37-47) % POC Hct (37-47) % MCV (80-100) fL MCH (25-34) pg MCHC (32-36) g/dL RDW Std Deviation (36.4-46.3) fL RDW Coeff of Yuko (11.5-14.5) % Plt Count (130-400) K/uL MPV (7.4-10.4) fL Immature Gran % (Auto) % Neut % (Auto) % Lymph % (Auto) % Weston % (Auto) % Eos % (Auto) % Baso % (Auto) % Immature Gran # (Auto) (0.00-0.02) K/uL Neut # (Auto) (1.4-6.5) K/uL Lymph # (Auto) (1.2-3.4) K/uL Weston # (Auto) (0.11-0.59) K/uL Eos # (Auto) (0-0.5) K/uL Baso # (Auto) (0-0.2) K/uL PT INR APTT PTT Ratio POC Sodium (135-144) mmol/L Sodium 139 (136-145) mmol/L POC Potassium (3.3-5.0) mmol/L Potassium 4.3 D (3.5-5.1) mmol/L POC Chloride (101-112) mmol/L Chloride 110 H (98-107) mmol/L Carbon Dioxide 25 (21-32) mmol/L POC Total CO2 (24-31) mEq/l Anion Gap 4.0 (3-11) POC Anion Gap (16-25) mmol/L POC BUN (7-18) mg/dl BUN 15 (7-18) mg/dl Creatinine 0.80 (0.6-1.2) mg/dl POC Creatinine (0.6-1.3) mg/dl Est Cr Clr Drug Dosing 83.6 ml/min Est GFR ( Amer) 96.9 Est GFR (Non-Af Amer) 83.6 BUN/Creatinine Ratio 19.2 (10-20) Glucose 102 H (70-99) mg/dl POC Glucose (other) (70-99) mg/dl Estimat Average Glucose 103 mg/dl Hemoglobin A1c 5.2 (4.5-5.6) % Calcium 8.6 (8.5-10.1) mg/dl POC Ioniz Calcium Rebel (1.12-1.32) mmol/l Total Bilirubin 1.0 D (0.2-1) mg/dl AST 911 H (15-37) U/L ALT 689 H (12-78) U/L Alkaline Phosphatase 110 (45-117) U/L Troponin I < 0.015 < 0.015 (0-0.045) ng/ml NT-Pro-B Natriuret Pep (0-900) pg/ml Total Protein 6.5 (6.4-8.2) gm/dl Albumin 3.0 L (3.4-5.0) gm/dl Globulin 3.5 (2.5-4.0) gm/dl Albumin/Globulin Ratio 0.9 (0.9-2) Triglycerides 46 (0-150) mg/dl Cholesterol 183 (0-200) mg/dl LDL Cholesterol, Calc 98 mg/dl VLDL Cholesterol, Calc 9 mg/dl HDL Cholesterol 76 mg/dl Cholesterol/HDL Ratio 2 Lipase (73-393) U/L TSH (0.300-4.500) uIu/ml Hepatitis C Ab Screen (Neg) 04/16/19 04/15/19 04/15/19 Range/Units 04:13 22:15 22:15 WBC 5.09 (4.8-10.8) K/uL RBC 3.89 L (4.2-5.4) M/uL Hgb 12.1 (12.0-16.0) g/dL POC Hgb (12.0-16.0) g/dl Hct 35.7 L (37-47) % POC Hct (37-47) % MCV 91.8 (80-100) fL MCH 31.1 (25-34) pg MCHC 33.9 (32-36) g/dL RDW Std Deviation 39.8 (36.4-46.3) fL RDW Coeff of Yuko 11.9 (11.5-14.5) % Plt Count 212 (130-400) K/uL MPV 9.6 (7.4-10.4) fL Immature Gran % (Auto) 0.0 % Neut % (Auto) 66.6 % Lymph % (Auto) 23.2 % Weston % (Auto) 9.6 % Eos % (Auto) 0.6 % Baso % (Auto) 0.0 % Immature Gran # (Auto) 0.00 (0.00-0.02) K/uL Neut # (Auto) 3.39 (1.4-6.5) K/uL Lymph # (Auto) 1.18 L (1.2-3.4) K/uL Weston # (Auto) 0.49 (0.11-0.59) K/uL Eos # (Auto) 0.03 (0-0.5) K/uL Baso # (Auto) 0.00 (0-0.2) K/uL PT INR APTT PTT Ratio POC Sodium (135-144) mmol/L Sodium (136-145) mmol/L POC Potassium (3.3-5.0) mmol/L Potassium (3.5-5.1) mmol/L POC Chloride (101-112) mmol/L Chloride (98-107) mmol/L Carbon Dioxide (21-32) mmol/L POC Total CO2 (24-31) mEq/l Anion Gap (3-11) POC Anion Gap (16-25) mmol/L POC BUN (7-18) mg/dl BUN (7-18) mg/dl Creatinine (0.6-1.2) mg/dl POC Creatinine (0.6-1.3) mg/dl Est Cr Clr Drug Dosing ml/min Est GFR ( Amer) Est GFR (Non-Af Amer) BUN/Creatinine Ratio (10-20) Glucose (70-99) mg/dl POC Glucose (other) (70-99) mg/dl Estimat Average Glucose mg/dl Hemoglobin A1c (4.5-5.6) % Calcium (8.5-10.1) mg/dl POC Ioniz Calcium Rebel (1.12-1.32) mmol/l Total Bilirubin (0.2-1) mg/dl AST (15-37) U/L ALT (12-78) U/L Alkaline Phosphatase (45-117) U/L Troponin I < 0.015 (0-0.045) ng/ml NT-Pro-B Natriuret Pep 49 (0-900) pg/ml Total Protein (6.4-8.2) gm/dl Albumin (3.4-5.0) gm/dl Globulin (2.5-4.0) gm/dl Albumin/Globulin Ratio (0.9-2) Triglycerides (0-150) mg/dl Cholesterol (0-200) mg/dl LDL Cholesterol, Calc mg/dl VLDL Cholesterol, Calc mg/dl HDL Cholesterol mg/dl Cholesterol/HDL Ratio Lipase (73-393) U/L TSH 0.866 (0.300-4.500) uIu/ml Hepatitis C Ab Screen Neg (Neg) 04/15/19 04/15/19 04/15/19 Range/Units 19:36 19:28 18:55 WBC (4.8-10.8) K/uL RBC (4.2-5.4) M/uL Hgb (12.0-16.0) g/dL POC Hgb 13.3 (12.0-16.0) g/dl Hct (37-47) % POC Hct 39 (37-47) % MCV (80-100) fL MCH (25-34) pg MCHC (32-36) g/dL RDW Std Deviation (36.4-46.3) fL RDW Coeff of Yuko (11.5-14.5) % Plt Count (130-400) K/uL MPV (7.4-10.4) fL Immature Gran % (Auto) % Neut % (Auto) % Lymph % (Auto) % Weston % (Auto) % Eos % (Auto) % Baso % (Auto) % Immature Gran # (Auto) (0.00-0.02) K/uL Neut # (Auto) (1.4-6.5) K/uL Lymph # (Auto) (1.2-3.4) K/uL Weston # (Auto) (0.11-0.59) K/uL Eos # (Auto) (0-0.5) K/uL Baso # (Auto) (0-0.2) K/uL PT 10.7 INR 1.0 APTT 25.9 PTT Ratio 0.9 POC Sodium 138 (135-144) mmol/L Sodium 138 (136-145) mmol/L POC Potassium 3.4 (3.3-5.0) mmol/L Potassium 3.4 L (3.5-5.1) mmol/L POC Chloride 103 (101-112) mmol/L Chloride 105 (98-107) mmol/L Carbon Dioxide 28 (21-32) mmol/L POC Total CO2 27 (24-31) mEq/l Anion Gap 5.0 (3-11) POC Anion Gap 12.0 L (16-25) mmol/L POC BUN 18 (7-18) mg/dl BUN 19 H (7-18) mg/dl Creatinine 0.84 (0.6-1.2) mg/dl POC Creatinine 0.8 (0.6-1.3) mg/dl Est Cr Clr Drug Dosing 80.3 ml/min Est GFR ( Amer) 91.3 Est GFR (Non-Af Amer) 78.8 BUN/Creatinine Ratio 22.2 H (10-20) Glucose 116 H (70-99) mg/dl POC Glucose (other) 117 H (70-99) mg/dl Estimat Average Glucose mg/dl Hemoglobin A1c (4.5-5.6) % Calcium 9.6 (8.5-10.1) mg/dl POC Ioniz Calcium Rebel 1.20 (1.12-1.32) mmol/l Total Bilirubin 0.3 (0.2-1) mg/dl AST 72 H (15-37) U/L ALT 56 (12-78) U/L Alkaline Phosphatase 83 (45-117) U/L Troponin I < 0.015 (0-0.045) ng/ml NT-Pro-B Natriuret Pep (0-900) pg/ml Total Protein 7.6 (6.4-8.2) gm/dl Albumin 3.6 (3.4-5.0) gm/dl Globulin 4.0 (2.5-4.0) gm/dl Albumin/Globulin Ratio 0.9 (0.9-2) Triglycerides (0-150) mg/dl Cholesterol (0-200) mg/dl LDL Cholesterol, Calc mg/dl VLDL Cholesterol, Calc mg/dl HDL Cholesterol mg/dl Cholesterol/HDL Ratio Lipase 237 (73-393) U/L TSH (0.300-4.500) uIu/ml Hepatitis C Ab Screen (Neg) 04/15/19 04/15/19 Range/Units 18:55 18:55 WBC 7.40 (4.8-10.8) K/uL RBC 4.24 (4.2-5.4) M/uL Hgb 13.7 (12.0-16.0) g/dL POC Hgb (12.0-16.0) g/dl Hct 38.4 (37-47) % POC Hct (37-47) % MCV 90.6 (80-100) fL MCH 32.3 (25-34) pg MCHC 35.7 (32-36) g/dL RDW Std Deviation 38.9 (36.4-46.3) fL RDW Coeff of Yuko 11.7 (11.5-14.5) % Plt Count 224 (130-400) K/uL MPV 10.0 (7.4-10.4) fL Immature Gran % (Auto) 0.1 % Neut % (Auto) 54.2 % Lymph % (Auto) 37.2 % Weston % (Auto) 7.0 % Eos % (Auto) 1.2 % Baso % (Auto) 0.3 % Immature Gran # (Auto) 0.01 (0.00-0.02) K/uL Neut # (Auto) 4.01 (1.4-6.5) K/uL Lymph # (Auto) 2.75 (1.2-3.4) K/uL Weston # (Auto) 0.52 (0.11-0.59) K/uL Eos # (Auto) 0.09 (0-0.5) K/uL Baso # (Auto) 0.02 (0-0.2) K/uL PT Cancelled INR Cancelled APTT Cancelled PTT Ratio Cancelled POC Sodium (135-144) mmol/L Sodium (136-145) mmol/L POC Potassium (3.3-5.0) mmol/L Potassium (3.5-5.1) mmol/L POC Chloride (101-112) mmol/L Chloride (98-107) mmol/L Carbon Dioxide (21-32) mmol/L POC Total CO2 (24-31) mEq/l Anion Gap (3-11) POC Anion Gap (16-25) mmol/L POC BUN (7-18) mg/dl BUN (7-18) mg/dl Creatinine (0.6-1.2) mg/dl POC Creatinine (0.6-1.3) mg/dl Est Cr Clr Drug Dosing ml/min Est GFR ( Amer) Est GFR (Non-Af Amer) BUN/Creatinine Ratio (10-20) Glucose (70-99) mg/dl POC Glucose (other) (70-99) mg/dl Estimat Average Glucose mg/dl Hemoglobin A1c (4.5-5.6) % Calcium (8.5-10.1) mg/dl POC Ioniz Calcium Rebel (1.12-1.32) mmol/l Total Bilirubin (0.2-1) mg/dl AST (15-37) U/L ALT (12-78) U/L Alkaline Phosphatase (45-117) U/L Troponin I (0-0.045) ng/ml NT-Pro-B Natriuret Pep (0-900) pg/ml Total Protein (6.4-8.2) gm/dl Albumin (3.4-5.0) gm/dl Globulin (2.5-4.0) gm/dl Albumin/Globulin Ratio (0.9-2) Triglycerides (0-150) mg/dl Cholesterol (0-200) mg/dl LDL Cholesterol, Calc mg/dl VLDL Cholesterol, Calc mg/dl HDL Cholesterol mg/dl Cholesterol/HDL Ratio Lipase (73-393) U/L TSH (0.300-4.500) uIu/ml Hepatitis C Ab Screen (Neg) Diagnostic Findings T ANGIOGRAM OF THE CHEST COMBO; CT ANGIOGRAM OF THE ABDOMEN AND PELVIS CLINICAL HISTORY: Atypical chest pain. Back pain. COMPARISON STUDY: Chest x-ray dated 04/15/2019. TECHNIQUE: Unenhanced axial CT of the chest is obtained. Following the IV administration of 119 cc of Optiray 320, CT angiogram of the chest, abdomen, and pelvis was performed from the thoracic inlet to the proximal femora. Images are reviewed in the axial, sagittal, and coronal planes. 3-D MIPS images are created and assessed. IV contrast was administered without complication. A dose lowering technique was utilized adhering to the principles of ALARA. CT DOSE: 980.49 mGy.cm FINDINGS: CHEST: Thyroid: Imaged portions of the thyroid gland are normal in size and attenuation. Thoracic aorta: No intramural hematoma is seen on the unenhanced series. The thoracic aorta is normal in course and caliber. The aortic arch demonstrates standard 3-vessel anatomy. No dissection is seen. The arch vessels are widely patent. Pulmonary vasculature: The pulmonary trunk is normal in caliber. There are no filling defects identified in the main, lobar, or segmental pulmonary vessels to suggest pulmonary embolus. Heart: The heart is normal in size and configuration, and without pericardial effusion. Lungs and pleural spaces: The lungs and pleural spaces are clear noting dependent atelectasis. The trachea and central airways are patent. Mediastinum: There is no mediastinal lymphadenopathy. Jocelyn: Clear. Axillae: There is no axillary lymphadenopathy. Bony thorax: No destructive bony lesions are identified. ABDOMEN AND PELVIS: Liver: The contrast-enhanced liver is normal in size, contour, and attenuation. There is no intrahepatic biliary ductal dilatation. Gallbladder: Gallstones are noted. There is no CT evidence of acute cholecystitis. Spleen: Normal in size and attenuation noting heterogeneous arterial phase enhancement. Pancreas: Unremarkable. Adrenal glands: Unremarkable. Kidneys: The contrast enhanced kidneys are normal in size and without hydronephrosis. The kidneys enhance symmetrically. Abdominal aorta and iliac arteries: The abdominal aorta is normal in course and caliber. No dissection is seen. The iliac arteries are widely patent bilaterally. Major branches of the abdominal aorta: The celiac trunk, superior mesenteric, and inferior mesenteric arteries are widely patent. Hepatic arterial anatomy is conventional. The splenic artery is patent. Single bilateral renal arteries are widely patent. Bowel: There is mild colonic fecal retention. No bowel obstruction is seen. The appendix is well-visualized and normal. Peritoneum: There is no intraperitoneal free air or abdominal ascites. Lymphadenopathy: None. Pelvic viscera: The bladder, uterus, and adnexa are normal as visualized. Skeletal structures: No destructive bony lesions are seen. IMPRESSION: 1. There is no aneurysm or dissection seen involving the thoracic or abdominal aorta. 2. There is no evidence of pulmonary embolus in the main, lobar, or segmental pulmonary arteries. 3. The lungs are clear 4. Unremarkable CT angiogram of the major branches of the abdominal aorta. 5. No acute infectious or inflammatory findings are identified in the abdomen or pelvis. 6. Cholelithiasis. 7. Additional findings as above. CXR 04/15/19: IMPRESSION: No active disease in the chest. KUB 04/15/19: IMPRESSION: Nonobstructed abdominal bowel gas pattern noting mo derate constipation. No significant change from today's abdominal CT.
--- NOTE | 2019-04-16 11:10 | Medical Student Progress Note ---
Date of Service April 16, 2019 Assessment & Plan (1) Transaminitis: Geovanna is a 53-year-old female who presented to the emergency room with acute middle back pain radiating to the epigastric area and chest yesterday. She developed an acute transaminitis overnight and cholelithiasis was observed on initial CT angiogram. She continues to have mild pain localized to the epigastric area. Transaminitis: Patient developed a significant elevation in AST and ALT overnight. -AST 911, ALT 689 (72 and 56 respectively at time of admission) -ALP 110, Total bilirubin 1.0 -Liver US -pending read -Gastroenterology consulted. EUS and possible ERCP planned for tomorrow -Continue to monitor LFTs, CBC, and BMP -KUB performed and did not show any evidence of bowel obstruction -Continue Dicyclomine 10 mg BID and Ondansetron PRN -Continue Acetaminophen 650 mg PRN and Ketorolac 15 mg IV PRN -NPO beginning at midnight Atypical chest pain: The patient was admitted to PCU on telemetry for observation of atypical chest pain and rule out of acute coronary syndrome. -Troponin I has remained non-elevated x3 -Lipid Panel reviewed and does not qualify for a statin -Hemoglobin A1c 5.7 -Echocardiogram performed: Mild reduction in LV systolic dysfunction. Mild global hypokinesis of LV. EF 45-50% (this is new compared to ECHO in Nov 2018). Grade I diastolic dysfunction. No valvular disease. -Appreciate Cardiology recs moving forward given new ECHO findings Cardiomyopathy - EF 45-50% - New findings. - ? SVT induced. Has been getting work up as outpatient. Was put on metoprolol - unclear why not taking. - Consult cardiology for evaluation. Hypertension: -Continue lisinopril 10 mg PO every morning Depression: -Continue Venlafaxine 37.5 mg PO every morning FEN/GI: NPO after midnight Code status: Full code DVT prophylaxis: Lovenox 40 mg daily Disposition: EUS +/- ERCP planned for tomorrow. Determine discharge plan following these tests. Supervising Attestation Medical Student Supervision Note: I independently interviewed and examined the patient and verified the anna history and physical, reviewed labs and image studies, discussed the case with Aries Abbasi and Dr. Maurizio Bermudez and agree with the findings and care plan. Subjective Geovanna is a 53-year-old female with a past medical history of hypertension and depression who presented to the emergency department on 04/14/18 secondary to acute-onset middle back pain. She described the pain as sharp and 9/10 in intensity with radiation to the chest and epigastric region. She said that she was folding clothes when the pain began and was not performing any strenuous activity. She was given ASA and nitroglycerin without relief. In the ED, a CTA of the chest, abdomen, and pelvis was performed, which did not show any signs of aortic dissection or aneurysm, pulmonary embolism, acute pancreatitis, or hepatitis. However, it did reveal cholelithiasis. A chest x-ray did not reveal any abnormalities and an ECG showed normal sinus rhythm without ST-segment abnormalities. Labs at the time of presentation showed AST 72, ALT 56, ALP 83, and lipase 237. Otherwise, labs were WNL. She was admitted for further workup and to rule out acute coronary syndrome. Today, Geovanna states that her pain is now mainly in the epigastric area and is worse when she lays on her right side. She rates her pain at a 1/10, and she denies any chest pain or tightness. She also denies any palpitations or short ness of breath. She has not had a bowel movement since admission, and she says she is feeling somewhat bloated. However, she denies any nausea, vomiting, heartburn, dysphagia, dysuria, hematuria, or anorexia. She was able to eat the majority of her breakfast this morning, which she tolerated well. Review of Systems Constitutional: no fever, no chills, no fatigue, no anorexia and no weight loss Respiratory: no cough, no dyspnea and no pain on inspiration Cardiovascular: no chest pain, no palpitations and no edema Gastrointestinal: as per Subjective / HPI Genitourinary: as per Subjective / HPI Musculoskeletal: as per Subjective / HPI and + back pain Integumentary: no rash and no lesions Neurologic: no problem reported Psychiatric: no problem reported Physical Exam Constitutional: WD/WN, vitals as above Eyes: PERRL, conjunctivae normal, anicteric sclerae ENMT: external ear and nose normal, oropharynx normal Neck: normal visual inspection Respiratory: normal respiratory effort, lungs clear to auscultation Cardiovascular: RRR, no murmur, no edema Vessels: no carotid bruit Gastrointestinal (Abdomen): Inspection/Auscultation: abdomen normal to inspection and normal bowel sounds; abdomen not distended, no abdominal wall ecchymosis and Arevalo-Madden sign absent Percussion/Palpation: + abdomen tender (Mild tenderness to palpation in the left and right lower quadrants), abdomen soft and normal to percussion; no guarding, no hepatosplenomegaly, no pulsatile mass and no ascites Musculoskeletal: no cyanosis or clubbing, extremities motor strength 5/5 Skin: no rashes, warm and dry Psychiatric: A+Ox3, euthymic affect Results & Data ([facility]) Vital Signs (Past 12 Hours) Vital Signs Temp Pulse Pulse Resp BP Pulse Ox 04/16/19 10:55 36.6 C 63 18 107/66 95 04/16/19 09:40 83 04/16/19 07:03 36.5 C 68 16 111/72 98 04/16/19 02:45 36.6 C 64 16 109/64 98 Laboratory Results Troponin I < 0.015 AST 911 ALT 689 ALP 110 Total Bili 1.0 Lipase 237 (as of 04/14) Lipid panel: Triglycerides 46 Cholesterol 183 LDL 98 VLDL 9 HDL 76 BUN 19 Cr 0.84 Hepatitis C antibody screen: Negative Diagnostic Findings KUB: No bowel obstruction. Evidence of moderate constipation Echocardiogram: Mild reduction in LV systolic dysfunction. Mild global hypokinesis of LV. EF 45-50%. Grade I diastolic dysfunction. No valvular disease. Resident Activity Tracking Resident Involvement: Resident Care Provided Care Provided: [facility]
--- NOTE | 2019-04-16 12:06 | XCELERA ---
[id number] \\[id number]
[2019-04-16 12:51] LABS: Appearance Urine Clear (Clear); Bacteria Urine Automated Negative (Negative); Blood Urine Negative (Negative); Cast Urine Automated 0 /lpf (0-5); Color Urine Dark Yellow; Epithelial Cell Urine Auto >30 /lpf (0-5); Glucose Urine UA Negative (Negative); Ketones Urine Negative (Negative); Leukocyte Esterase Urine Trace (Negative); Nitrite Urine Negative (Negative); Protein Urine Negative (Negative); RBC Urine Automated 0-4 /hpf (0-4); Specific Gravity Urine 1.015 (1.000-1.030); Urobilinogen Urine Positive (Negative)
[2019-04-16 12:56] LABS: Bilirubin Urine 1+ (Negative)
[2019-04-16 12:58] LABS: Ictotest Urine Positive (Negative)
[2019-04-16 13:42] LABS: Albumin Level 2.9 gm/dl (3.4-5.0); BUN Creatinine Ratio 17.2 (10-20); Calcium 8.7 mg/dl (8.5-10.1); Creatinine Clr Calc Pharmacy 82.3 ml/min; Est GFR (African American) 95.4; Est GFR (Non-African American) 82.3; Potassium 4.2 mmol/L (3.5-5.1)
[2019-04-16] MEDS: TRAMADOL HCL 50 MG TABLET PO PRN (13:47)
[2019-04-16 14:07] LABS: Albumin Globulin Ratio 0.8 (0.9-2); Bilirubin,Total 1.8 mg/dl (0.2-1); Globulin 3.5 gm/dl (2.5-4.0); Total Protein 6.4 gm/dl (6.4-8.2)
--- NOTE | 2019-04-16 14:34 | Electrocardiogram Report ---
Test Reason : Blood Pressure : / mmHG Vent. Rate : 087 BPM Atrial Rate : 087 BPM P-R Int : 150 ms QRS Dur : 090 ms QT Int : 372 ms P-R-T Axes : 061 074 067 degrees QTc Int : 447 ms Normal sinus rhythm Normal ECG No previous ECGs available Confirmed by Kermit Osborne ([id number]) on 04/16/2019 2:33:43 PM Referred By: REFERRED SELF Confirmed By:Kermit Osborne
--- NOTE | 2019-04-16 16:08 | Ultrasound Report ---
ULTRASOUND RIGHT UPPER QUADRANT ABDOMEN CLINICAL HISTORY: Elevated hepatic transaminases. COMPARISON STUDY: Abdominal CT dated 04/15/2019. TECHNIQUE: Real-time, grayscale, and color flow sonography of the right upper quadrant of the abdomen was performed. Images are reviewed in the transverse and longitudinal planes. FINDINGS: Liver: The liver is normal in size and echotexture. There is no intrahepatic biliary ductal dilatatio n. The main portal vein is patent. Gallbladder: A large shadowing gallstone is identified. Biliary sludge is noted. There is no gallblad terrence wall thickening or pericholecystic fluid. A sonographic Santizo's sign is reportedly absent. The c ommon bile duct measures up to 0.3 cm in diameter. Pancreas: Visualized portions of the pancreatic head and body are normal in appearance. The splenic v ein is patent. Right kidney: Survey images of the right kidney demonstrate normal size and echotexture. There is no hydronephrosis. Ascites: None. IMPRESSION: Cholelithiasis and biliary sludge with no sonographic evidence of acute cholecystitis. ACT 112: Negative or not required by law. Electronically signed by: Alexander Anne M.D. 04/16/2019 4:07 PM
--- NOTE | 2019-04-16 16:18 | Anesthesiology Consultation ---
Date of Service April 16, 2019 Assessment & Plan (1) Encounter for pre-operative examination: Chart Review Chart Review: Acceptable Risk for Surgery and Patient NOT seen in Pre Admission Testing Consults Requested none History Surgery Operation Date: 04/17/19 07:30 Proposed Procedures p Endoscopic Retrograde Cholangiopancreatogram, - Nurys Peterson MD s Upper Endoscopic Ultrasonography - Nurys Peterson MD Height/Weight Height: 5 ft 6 in Weight: 75.3 kg Allergies Allergy/AdvReac Type Severity Reaction Status Date / Time No Known Allergies Allergy Verified 04/15/19 19:33 Medications Home Medications Medication Instructions Recorded Confirmed Last Taken lisinopril 10 mg PO QAM 04/15/19 04/15/19 04/15/19 venlafaxine 37.5 mg PO QAM 04/15/19 04/15/19 04/15/19 Active Medications Generic Name Dose Route Start Last Admin Trade Name Freq PRN Reason Stop Dose Admin Aspirin 81 mg 04/16/19 09:00 04/16/19 08:12 Ecotrin Ectab PO 05/16/19 08:59 81 mg QAM KENISHA Administration Dicyclomine HCl 10 mg 04/15/19 22:02 04/16/19 08:12 Bentyl PO 05/15/19 22:01 10 mg BID KENISHA Administration Enoxaparin Sodium 40 mg 04/16/19 09:00 04/16/19 08:12 Lovenox SQ 05/16/19 08:59 40 mg Q24H KENISHA Administration Hydralazine HCl 5 mg 04/15/19 22:02 04/16/19 08:11 Apresoline PO 05/15/19 22:01 5 mg TID PRN Administration high BP Famotidine 20 mg/ Syringe 5 mls @ 2.5 mls/min 04/16/19 09:00 04/16/19 08:15 IV 05/16/19 08:59 2.5 mls/min BID KENISHA Administration Lisinopril 10 mg 04/16/19 09:00 04/16/19 08:11 Zestril PO 05/16/19 08:59 10 mg QAM KENISHA Administration Ondansetron HCl 4 mg 04/15/19 22:02 04/16/19 15:05 Zofran IV 05/15/19 22:01 4 mg Q6H PRN Administration Nausea Tramadol HCl 50 mg 04/15/19 22:02 04/16/19 13:47 Ultram PO 05/15/19 22:01 50 mg Q4H PRN Administration Pain Venlafaxine HCl 37.5 mg 04/16/19 09:00 04/16/19 08:11 Effexor PO 05/16/19 08:59 37.5 mg QAM KENISHA Administration Past Medical History Medical History (Updated 04/16/19 @ 16:24 by Zack Garcia MD) Depression Diastolic dysfunction Grade 1, EF 45-50% Hypertension (Chronic) Hypertension Past Family History Family History Other No significant family history Social History Smoking Status: Never smoker Do You Dip or Chew Tobacco: No Hx Alcohol Use: No alcohol intake frequency: holidays/special occasions only Hx Substance Use: No substance use type: does not use Physical Exam Vital Signs Last Vital Signs Temp 36.6 C 04/16/19 15:10 Pulse 73 04/16/19 15:10 Resp 18 04/16/19 15:10 BP 106/65 04/16/19 15:10 Pulse Ox 96 04/16/19 15:10 Testing Laboratory Results 04/16/19 04:13 04/16/19 13:09 PT 10.7 Seconds (9.0-12.0) 04/15/19 19:36 INR 1.0 (0.9-1.1) 04/15/19 19:36 APTT 25.9 Seconds (21.0-31.0) 04/15/19 19:36 Hemoglobin A1c 5.2 % (4.5-5.6) 04/16/19 04:13 Urine Color Dark Yellow 04/16/19 12:30 Urine Appearance Clear (Clear) 04/16/19 12:30 Urine pH 6.0 (4.5-7.5) 04/16/19 12:30 Ur Specific [place] 1.015 (1.000-1.030) 04/16/19 12:30 Urine Protein Negative (Negative) 04/16/19 12:30 Urine Glucose (UA) Negative (Negative) 04/16/19 12:30 Urine Ketones Negative (Negative) 04/16/19 12:30 Urine Nitrite Negative (Negative) 04/16/19 12:30 Ur Leukocyte Esterase Trace (Negative) H 04/16/19 12:30 Urine WBC (Auto) 1-5 /hpf (0-5) 04/16/19 12:30 Urine RBC (Auto) 0-4 /hpf (0-4) 04/16/19 12:30 U Hyaline Cast (Auto) 0 /lpf (0-5) 04/16/19 12:30 U Epithel Cells (Auto) >30 /lpf (0-5) H 04/16/19 12:30 Urine Bacteria (Auto) Negative (Negative) 04/16/19 12:30 Electrocardiogram Date: 04/15/19 Findings: + NSR @ (87) Chest X-Ray Date: 04/15/19 [place], [place] [phone] XRay Report Patient: CHANTEL CHRISTIANSENmit Date: 04/15/19 MR#: [id number]: [address] [facility] Acct ID:[id number]: Date: 1965[facility] Zip: [place] [address] Age: 53Location: ED Sex: F Room/Bed: Att Phy:Diagnosis: BACK PAIN, UPPER GASTRIC PAIN, MILD SOB Kimi Phy: Terri Deng CRNPService Date: 04/15/19 Fam Phy:Interpreting Phy: Alexander Anne MD Admit Phy: Ordering Phy: Daniele Correa M.D. cc: ~ SINGLE VIEW CHEST CLINICAL HISTORY: Atypical chest pain. FINDINGS: An AP, portable, upright chest radiograph is obtained. No prior studies are available for comparison at the time of dictation. The examination is degraded by portable technique and patient rotation. The cardiomediastinal silhouette is unremarkable. There is mild bibasilar atelectasis. The lungs and pleural spaces are otherwise clear. No pneumothorax is seen. The bony thorax is grossly intact. IMPRESSION: No active disease in the chest. ACT 112: Negative or not required by law. Electronically signed by: Alexander Anne M.D. 04/15/2019 7:37 PM Dictated: 04/15/191935 Transcribed: 04/15/191935 Echocardiogram Date: 04/16/19 EF: 45-50 Other Findings: + diastolic dysfunction (grade 1) Valvular Disease: + no significant valvular disease
[2019-04-17 06:14] LABS: Basophils # (auto) 0.01 K/uL (0-0.2); Basophils % (auto) 0.3 %; Eosinophils % (auto) 2.9 %; Hematocrit (blood only) 35.9 % (37-47); Hemoglobin 12.4 g/dL (12.0-16.0); Lymphocytes # (auto) 1.24 K/uL (1.2-3.4); Lymphocytes % (auto) 35.9 %; Mean Corpuscular Hemoglobin 31.9 pg (25-34); Mean Corpuscular Hgb Conc 34.5 g/dL (32-36); Mean Corpuscular Volume 92.3 fL (80-100); Mean Platelet Volume 9.9 fL (7.4-10.4); Monocytes # (auto) 0.37 K/uL (0.11-0.59); Monocytes % (auto) 10.7 %; Neutrophils # (auto) 1.73 K/uL (1.4-6.5); Neutrophils % (auto) 50.2 %; Platelet Count 193 K/uL (130-400); RDW Coefficient of Variation 12.3 % (11.5-14.5); RDW Standard Deviation 41.6 fL (36.4-46.3); Red Blood Count 3.89 M/uL (4.2-5.4); White Blood Count 3.45 K/uL (4.8-10.8)
--- NOTE | 2019-04-17 06:41 | Gastroenterology Progress Note ---
Date of Service April 17, 2019 Assessment & Plan (1) Acute epigastric pain: 53-year-old female who presented with acute epigastric/middle back pain w/ rise in her transaminases overnight, and cholelithiasis found on abdominal imaging. NPO Follow AM labs EUS, +/- ERCP today Continue antiemetics PRN Continue analgesia PRN Thank you for allowing us to participate in the care of this patient. Please call with any acute changes, questions or concerns. Please see addendum below with additional recommendation from my supervising physician. (2) Transaminitis: Admission and Anticipated Discharge Date Admission Date: April 16, 2019 Supervising Physician Co-Signing Physician Notes I performed a history and physical examination of the patient today, including specifically on physical exam - soft abdomen. I have discussed the patient's management with the advanced practitioner. Please refer to the nurse practitioner's note for the documented findings and plan of care. EUS/ERCP today Subjective Pt was seen and evaluated, chart reviewed No acute events overnight Feeling well - abd pain improving. No nausea, vomiting since evaluation yesterday. Review of Systems Constitutional: no fever and no body aches Respiratory: no cough and no dyspnea Cardiovascular: no chest pain and no radiating jaw, neck or arm pain Gastrointestinal: no abdominal pain, no heartburn, no nausea, no hematemesis, no blood in stools and no melena Physical Exam Constitutional: WD/WN, vitals as above Neck: trachea midline Respiratory: normal respiratory effort Cardiovascular: Rate/Rhythm: regular rhythm Gastrointestinal (Abdomen): normal bowel sounds, soft, nontender, no hepatosplenomegaly Results & Data ([facility]) Vital Signs (Past 12 Hours) Vital Signs Temp Pulse Pulse Resp BP Pulse Ox 04/17/19 03:14 36.7 C 84 16 108/73 93 04/16/19 22:57 64 04/16/19 21:57 36.7 C 77 18 120/75 97 04/16/19 19:23 36.7 C 76 20 143/89 H 94 Laboratory Results 04/17/19 04/17/19 04/16/19 Range/Units 05:31 05:31 13:09 WBC 3.45 L (4.8-10.8) K/uL RBC 3.89 L (4.2-5.4) M/uL Hgb 12.4 (12.0-16.0) g/dL Hct 35.9 L (37-47) % MCV 92.3 (80-100) fL MCH 31.9 (25-34) pg MCHC 34.5 (32-36) g/dL RDW Std Deviation 41.6 (36.4-46.3) fL RDW Coeff of [place] 12.3 (11.5-14.5) % Plt Count 193 (130-400) K/uL MPV 9.9 (7.4-10.4) fL Immature Gran % (Auto) 0.0 % Neut % (Auto) 50.2 % Lymph % (Auto) 35.9 % [place] % (Auto) 10.7 % Eos % (Auto) 2.9 % Baso % (Auto) 0.3 % Immature Gran # (Auto) 0.00 (0.00-0.02) K/uL Neut # (Auto) 1.73 (1.4-6.5) K/uL Lymph # (Auto) 1.24 (1.2-3.4) K/uL [place] # (Auto) 0.37 (0.11-0.59) K/uL Eos # (Auto) 0.10 (0-0.5) K/uL Baso # (Auto) 0.01 (0-0.2) K/uL Sodium Pending 140 (136-145) mmol/L Potassium Pending 4.2 (3.5-5.1) mmol/L Chloride Pending 110 H (98-107) mmol/L Carbon Dioxide Pending 25 (21-32) mmol/L Anion Gap Pending 5.0 (3-11) BUN Pending 14 (7-18) mg/dl Creatinine Pending 0.81 (0.6-1.2) mg/dl Est Cr Clr Drug Dosing Pending 82.3 ml/min Est GFR ( Amer) Pending 95.4 Est GFR (Non-Af Amer) Pending 82.3 BUN/Creatinine Ratio Pending 17.2 (10-20) Glucose Pending 91 (70-99) mg/dl Calcium Pending 8.7 (8.5-10.1) mg/dl Total Bilirubin Pending 1.8 H D (0.2-1) mg/dl AST Pending 1187 H (15-37) U/L ALT Pending 1175 H (12-78) U/L Alkaline Phosphatase Pending 122 H (45-117) U/L Troponin I (0-0.045) ng/ml Total Protein Pending 6.4 (6.4-8.2) gm/dl Albumin Pending 2.9 L (3.4-5.0) gm/dl Globulin Pending 3.5 (2.5-4.0) gm/dl Albumin/Globulin Ratio Pending 0.8 L (0.9-2) Urine Color Urine Appearance (Clear) Urine pH (4.5-7.5) Ur Specific [place] (1.000-1.030) Urine Protein (Negative) Urine Glucose (UA) (Negative) Urine Ketones (Negative) Urine Blood (Negative) Urine Nitrite (Negative) Urine Bilirubin (Negative) Urine Urobilinogen (Negative) Ur Leukocyte Esterase (Negative) Urine WBC (Auto) (0-5) /hpf Urine RBC (Auto) (0-4) /hpf U Hyaline Cast (Auto) (0-5) /lpf U Epithel Cells (Auto) (0-5) /lpf Urine Bacteria (Auto) (Negative) 04/16/19 04/16/19 Range/Units 12:30 09:53 WBC (4.8-10.8) K/uL RBC (4.2-5.4) M/uL Hgb (12.0-16.0) g/dL Hct (37-47) % MCV (80-100) fL MCH (25-34) pg MCHC (32-36) g/dL RDW Std Deviation (36.4-46.3) fL RDW Coeff of [place] (11.5-14.5) % Plt Count (130-400) K/uL MPV (7.4-10.4) fL Immature Gran % (Auto) % Neut % (Auto) % Lymph % (Auto) % [place] % (Auto) % Eos % (Auto) % Baso % (Auto) % Immature Gran # (Auto) (0.00-0.02) K/uL Neut # (Auto) (1.4-6.5) K/uL Lymph # (Auto) (1.2-3.4) K/uL [place] # (Auto) (0.11-0.59) K/uL Eos # (Auto) (0-0.5) K/uL Baso # (Auto) (0-0.2) K/uL Sodium (136-145) mmol/L Potassium (3.5-5.1) mmol/L Chloride (98-107) mmol/L Carbon Dioxide (21-32) mmol/L Anion Gap (3-11) BUN (7-18) mg/dl Creatinine (0.6-1.2) mg/dl Est Cr Clr Drug Dosing ml/min Est GFR ( Amer) Est GFR (Non-Af Amer) BUN/Creatinine Ratio (10-20) Glucose (70-99) mg/dl Calcium (8.5-10.1) mg/dl Total Bilirubin (0.2-1) mg/dl AST (15-37) U/L ALT (12-78) U/L Alkaline Phosphatase (45-117) U/L Troponin I < 0.015 (0-0.045) ng/ml Total Protein (6.4-8.2) gm/dl Albumin (3.4-5.0) gm/dl Globulin (2.5-4.0) gm/dl Albumin/Globulin Ratio (0.9-2) Urine Color Dark Yellow Urine Appearance Clear (Clear) Urine pH 6.0 (4.5-7.5) Ur Specific [place] 1.015 (1.000-1.030) Urine Protein Negative (Negative) Urine Glucose (UA) Negative (Negative) Urine Ketones Negative (Negative) Urine Blood Negative (Negative) Urine Nitrite Negative (Negative) Urine Bilirubin 1+ H (Negative) Urine Urobilinogen Positive H (Negative) Ur Leukocyte Esterase Trace H (Negative) Urine WBC (Auto) 1-5 (0-5) /hpf Urine RBC (Auto) 0-4 (0-4) /hpf U Hyaline Cast (Auto) 0 (0-5) /lpf U Epithel Cells (Auto) >30 H (0-5) /lpf Urine Bacteria (Auto) Negative (Negative)
[2019-04-17 07:02] LABS: Albumin Globulin Ratio 0.9 (0.9-2); Albumin Level 3.1 gm/dl (3.4-5.0); BUN Creatinine Ratio 10.7 (10-20); Bilirubin,Total 2.1 mg/dl (0.2-1); Creatinine Clr Calc Pharmacy 80.4 ml/min; Est GFR (African American) 92.7; Est GFR (Non-African American) 79.9; Globulin 3.4 gm/dl (2.5-4.0); Potassium 4.2 mmol/L (3.5-5.1); Total Protein 6.5 gm/dl (6.4-8.2)
[2019-04-17] MEDS: ENOXAPARIN INJ 40 MG/0.4 ML SYR SQ SCH (07:57)
[2019-04-17] MEDS: FAMOTIDINE 20 MG in SYRINGE 3 ML IV SCH ×2 (07:57→20:12)
[2019-04-17] MEDS: lisinopriL 10 MG TAB PO SCH (08:31)
[2019-04-17] MEDS: ASPIRIN 81 MG ECTAB PO SCH (08:31)
[2019-04-17] MEDS: DICYCLOMINE HCL 10 MG CAP PO SCH ×2 (08:32→20:12)
[2019-04-17] MEDS: VENLAFAXINE HCL 37.5 MG TAB PO SCH (08:32)
--- NOTE | 2019-04-17 09:29 | Medical Student Progress Note ---
Date of Service April 17, 2019 Assessment & Plan (1) Acute epigastric pain: Geovanna is a 53-year-old female who presented to the emergency room with acute middle back pain radiating to the epigastric area and chest. She then developed a significant acute transaminitis and cholelithiasis was observed on initial CT angiogram. She did not have evidence of an obstructive pattern at the time of admission, but ALP has been trending upward, which is consistent with the findings on liver ultrasound of cholelithiasis and biliary sludge Acute Epigastric Pain -Liver ultrasound confirmed cholelithiasis and showed biliary sludge. No evidence of acute cholecystitis. -Gastroenterology consulted. ERCP today- choledocholothiasis found. One stent placed in ventral pancreatic duct. One stent placed in CBD. Will repeat ERCP in 4-6 wks to remove stent. -->consult sx for cholecystectomy -Avoid ASA and NSAIDs for 5 days -Continue to monitor LFTs, CBC, and BMP -Continue Dicyclomine 10 mg BID and Ondansetron PRN -Continue Acetaminophen 650 mg PRN and Ketorolac 15 mg IV PRN -Continue Famotidine 20 mg IV BID -AST peaked at 1187 and currently downtrending. ALT peaked at 1175 and is also downtrending -ALP elevated to 137. Total bili 2.1 Transaminitis: The patient had a mild transaminitis at the time of admission, which has increased significantly over the past two days. AST and ALT are beginning to trend downward. She did not have evidence of an obstructive pattern at the time of admission, but ALP has been trending upward, which is consistent with the findings on liver ultrasound of cholelithiasis and biliary sludge. -AST peaked at 1187 and currently downtrending. ALT peaked at 1175 and is also downtrending -ALP elevated to 137 -Total bili 2.1 -Continue to monitor LFTs Atypical chest pain: The patient was admitted to PCU on telemetry for observation of atypical chest pain and rule out of acute coronary syndrome. -Troponin I negative x 3 -Lipid Panel reviewed. statin not indicated at this time -Hemoglobin A1c 5.7 -Echocardiogram performed which showed mild reduction in LV function, mild global hypokinesia of LV, EF 40-50%, and Grade I diastolic dysfunction. No evidence of valvular disease. -Will consider removing ASA moving forward as does not appear to be ACS related CP Diastolic dysfunction: Patient received echocardiogram during workup of atypical chest pain which revealed grade I diastolic dysfunction and several other structural changes compared to her most recent echocardiogram that was performed in November. -Consider sleep study to investigate the possibility of obstructive apnea being an underlying cause of the structural heart changes and supraventricular tachycardia -Metoprolol originally prescribed in November due to Holter monitor results. However, patient discontinued due to unspecified negative side effects. -Cardiology consulted. Appreciate recs. Hypertension: -Continue lisinopril 10 mg PO every morning. -Discussion with patient suggests blood pressure is not well-controlled at home. Recommend outpatient follow up for tighter blood pressure control Depression: -Continue Venlafaxine 37.5 mg PO every morning DVT Prophylaxis: Lovenox 40 mg daily Full Code Disposition: Remains on Telemetry Supervising Attestation Medical Student Supervision Note: I independently interviewed and examined the patient and verified the anna history and physical, reviewed labs and image studies, discussed the case with the medical student Aries Abbasi and the resident Dr. Jake Bermudez and agree with the findings and care plan. Wilder Austin is a 53-year-old female with a history of HTN and depression who presented to the emergency room on 04/14/18 with acute-onset middle back pain radiating to the chest and epigastric area. Since then, her pain has resolved but she d eveloped a significant transaminitis [place] [address] and 1175, respectively. Cholelithiasis was also visualized on initial CTA and subsequent liver ultrasound visualized the stones and biliary sludge. The patient did not have any issues overnight. This morning, she states that she is pain-free and has not had any abdominal symptoms. She denies nausea, vomiting, bowel or urinary changes, abdominal pain or bloating, chest pain, back pain, palpitations, or dyspnea. She is patiently waiting to undergo the EUS +/- ERCP this afternoon. Due to the echocardiogram findings, we discussed possible etiologies. She denies any knowledge of obstructive sleep apnea symptoms such as waking up in the middle of the night or daytime fatigue. However, she notes a family history of LEONORA. Her father and brother both have LEONORA and are treated with BiPAP. She also things her other sibling has undiagnosed LEONORA. She also states that her blood pressure has been elevated for several years. She endorses frequent headaches, lightheadedness, and occasional visual disturbance. She does not check her BP at home but she has a friend who checks it occasionally, which has showed systolic 150-210 mm Hg and diastolic around 100 mm Hg. She also had a workup in November for frequent palpitations, which showed episodes of SVT. She was placed on metoprolol at that time but she was unable to tolerate it due to nonspecific negative symptoms. She continues to endorse frequent palpitations that occasionally wake her up in the middle of the night. They typically only last a few seconds but they take her breath away in the moment and cause a feeling of a racing heart. Review of Systems Constitutional: no problem reported Eyes: no problem reported Respiratory: as per Subjective / HPI Cardiovascular: as per Subjective / HPI Gastrointestinal: as per Subjective / HPI Genitourinary: as per Subjective / HPI Musculoskeletal: no problem reported Neurologic: no problem reported Psychiatric: no problem reported Physical Exam Constitutional: WD/WN, vitals as above Eyes: PERRL, conjunctivae normal, anicteric sclerae ENMT: external ear and nose normal, oropharynx normal Neck: normal visual inspection Respiratory: normal respiratory effort, lungs clear to auscultation Cardiovascular: RRR, no murmur, no edema Vessels: no carotid bruit Gastrointestinal (Abdomen): Inspection/Auscultation: abdomen normal to inspection and normal bowel sounds; abdomen not distended, no abdominal wall ecchymosis and Arevalo-Madden sign absent Percussion/Palpation: + abdomen tender (Mild tenderness to palpation in the left and right lower quadrants), abdomen soft and normal to percussion; no guarding, no hepatosplenomegaly, no pulsatile mass and no ascites Musculoskeletal: no cyanosis or clubbing, extremities motor strength 5/5 Skin: no rashes, warm and dry Psychiatric: A+Ox3, euthymic affect Results & Data ([facility]) Vital Signs (Past 12 Hours) Vital Signs Temp Pulse Pulse Resp BP Pulse Ox 04/17/19 08:36 80 04/17/19 07:19 36.9 C 86 16 126/74 98 04/17/19 03:14 36.7 C 84 16 108/73 93 04/16/19 22:57 64 04/16/19 21:57 36.7 C 77 18 120/75 97 Laboratory Results AST:911 to 1187 to 712 ALT: 689 to 1175 to 1110 ALP: 110 to 122 to 137 Total bili: 1.8 to 2.1 BUN 9, Cr 0.83 Diagnostic Findings Liver Ultrasound (04/15/18): Cholelithiasis and biliary sludge Echocardiogram (04/15/18): Mild reduction in LV systolic function. Mild global hypokinesia. EF 45-50% (new compared to echo in November 2018), Grade I diastolic dysfunction. No valvular disease. Resident Activity Tracking Resident Involvement: Resident Care Provided Care Provided: Adult Hospital Medicine
[2019-04-17] MEDS ORDERED: LACTATED RINGER'S 1,000 ML IV SCH (13:15)
[2019-04-17] MEDS ORDERED: INDOMETHACIN 50 MG SUPP PR ONE (14:01)
[2019-04-17] MEDS ORDERED: PROPOFOL IV EMULSION 10 MG/ML 20 ML VIAL IV ONE ×5 (14:07→15:34)
[2019-04-17] MEDS ORDERED: NEOSTIGMINE METHYLSULFATE 5 MG/5 ML SYR ONE (14:07)
[2019-04-17] MEDS ORDERED: DEXAMETHASONE SOD INJ 4 MG/ML VIAL ONE (14:07)
[2019-04-17] MEDS ORDERED: ONDANSETRON INJ 2 MG/ML 2 ML VIAL ONE (14:07)
[2019-04-17] MEDS ORDERED: LIDOCAINE HCL 2% 2 ML VIAL/AMP(20MG/ML) INFIL ONE (14:07)
[2019-04-17] MEDS ORDERED: GLYCOPYRROLATE 0.2 MG/ML VIAL ONE (14:07)
[2019-04-17] MEDS ORDERED: MIDAZOLAM HCL 1 MG/ML 2ML VIAL ONE (14:08)
[2019-04-17] MEDS ORDERED: fentaNYL citrate 100 MCG/2 ML VIAL ONE ×3 (14:08→15:03)
[2019-04-17] MEDS ORDERED: ATROPINE SULFATE 0.1 MG/ML 10ML SYR IV PRN (14:20)
[2019-04-17] MEDS ORDERED: fentaNYL citrate 100 MCG/2 ML VIAL IV PRN (14:20)
[2019-04-17] MEDS ORDERED: HYDROmorphone INJ 2 MG/ML SYR/VIAL IV PRN (14:20)
[2019-04-17] MEDS ORDERED: PROMETHAZINE HCL 12.5 MG in SODIUM CHLORIDE 0.9% 50 ML IV PRN (14:20)
[2019-04-17] MEDS ORDERED: ONDANSETRON INJ 2 MG/ML 2 ML VIAL IV PRN (14:20)
[2019-04-17] MEDS ORDERED: ePHEDrine sulfate 50 MG/ML AMP IV PRN (14:20)
[2019-04-17] MEDS ORDERED: INDOMETHACIN 50 MG SUPP PR STA (14:44)
--- NOTE | 2019-04-17 14:44 | History & Physical Bridge Note ---
Date of Service April 17, 2019 History & Physical Bridge Note I have examined the patient, reviewed the History & Physical and in the interval since the performance of the History & Physical I have noted the following changes of clinical significance: no changes noted
[2019-04-17] MEDS ORDERED: ESMOLOL HCL INJ 10 MG/ML 10ML VIAL IV ONE (15:11)
[2019-04-17] MEDS ORDERED: ROCURONIUM BROMIDE 10 MG/ML 5 ML VIAL ONE (15:11)
[2019-04-17] MEDS ORDERED: METOCLOPRAMIDE HCL INJ 5 MG/ML 2 ML VIAL ONE (15:11)
[2019-04-17] MEDS ORDERED: ATROPINE SO4 1 MG/ML 1ML VIAL ONE (15:11)
--- NOTE | 2019-04-17 15:49 | Operative Report ---
Post Operative Report Pre & Post Diagnosis Operation Date: 04/17/19 07:30 Pre-Op Diagnosis: Acute Epigastric Pain Post-Op Diagnosis: Acute Epigastric Pain I identified the patient and participated in the time-out.: Yes Procedure Operation Date: 04/17/19 07:30 Actual Procedures p Endoscopic Retrograde Cholangiopancreatogram with Stent Insertion,(Not Ap plicable) - Nurys Peterson MD s Upper Endoscopic Ultrasonography, Upper Gastrointestinal Endoscopy(Not Applicable) - Nurys Peterson MD Surgeon Nurys Peterson MD Part Maker None Estimated Blood Loss 0 Findings See Below (CBD stone removed) Specimens None Description of Procedure EUS/ERCP I attest to the content of the Intraoperative Record and any orders documented therein. Any exceptions are noted below.
--- NOTE | 2019-04-17 15:56 | GI REPORT ---
Patient Name: Geovanna Alcantara Procedure Date: 04/17/2019 2:10 PM Date of : 1965 Admit Type: Inpatient Age: 53 Gender: Female Attending MD: Nurys Peterson MD Procedure: Upper GI endoscopy Providers: Nurys Peterson MD Referring MD: Mercedes Walker Indications: Epigastric abdominal pain Medicines: Propofol per Anesthesia Complications: No immediate complications. Estimated Blood Loss: Estimated blood loss: none. Procedure: Pre-Anesthesia Assessment: - Prior to the procedure, a History and Physical was performed, and patient medications, allergies and sensitivities were reviewed. The patient's tolerance of previous anesthesia was reviewed. - The risks and benefits of the procedure and the sedation options and risks were discussed with the patient. All questions were answered and informed consent was obtained. - Patient identification and proposed procedure were verified prior to the procedure by the physician and the nurse. The procedure was verified in the procedure room. - Pre-procedure physical examination revealed no contraindications to sedation. After obtaining informed consent, the endoscope was passed under direct vision. Throughout the procedure, the patient's blood pressure, pulse, and oxygen saturations were monitored continuously. The Endoscope was introduced through the mouth, and advanced to the duodenal bulb. The upper GI endoscopy was accomplished without difficulty. The patient tolerated the procedure well. Findings: The examined esophagus was normal. The entire examined stomach was normal. The duodenal bulb and second portion of the duodenum were normal. Impression: - Normal esophagus. - Normal stomach. - Normal duodenal bulb and second portion of the duodenum. - No specimens collected. Recommendation: - Perform an upper endoscopic ultrasound (UEUS) today. Nurys Peterson MD 04/17/2019 3:56:03 PM This report has been signed electronically. Note Initiated On: 04/17/2019 2:10 PM Number of Addenda: 0 I attest to the content of the Intraoperative Record and orders documented therein, exceptions below {[id number]}
--- NOTE | 2019-04-17 16:06 | GI REPORT ---
Patient Name: Geovanna Alcantara Procedure Date: 04/17/2019 2:12 PM Date of : 1965 Admit Type: Inpatient Age: 53 Gender: Female Attending MD: Nurys Peterson MD Procedure: Upper EUS Providers: Nurys Peterson MD Referring MD: Mercedes Walker Indications: Elevated liver enzymes, Suspected choledocholithiasis Medicines: Propofol per Anesthesia Complications: No immediate complications. Estimated Blood Loss: Estimated blood loss: none. Procedure: Pre-Anesthesia Assessment: - Prior to the procedure, a History and Physical was performed, and patient medications, allergies and sensitivities were reviewed. The patient's tolerance of previous anesthesia was reviewed. - The risks and benefits of the procedure and the sedation options and risks were discussed with the patient. All questions were answered and informed consent was obtained. - Patient identification and proposed procedure were verified prior to the procedure by the physician and the nurse. The procedure was verified in the procedure room. - Pre-procedure physical examination revealed no contraindications to sedation. After obtaining informed consent, the endoscope was passed under direct vision. Throughout the procedure, the patient's blood pressure, pulse, and oxygen saturations were monitored continuously. The Endosonoscope was introduced through the mouth, and advanced to the second part of duodenum. The upper EUS was accomplished without difficulty. The patient tolerated the procedure well. Findings: ENDOSONOGRAPHIC FINDING: : There was no sign of significant endosonographic abnormality in the ampulla. No masses were identified. One stone was visualized endosonographically in the common bile duct. The stone was round. It was hyperechoic and characterized by shadowing. CBD measured 4 mm in diameter. One stone was visualized endosonographically in the gallbladder. The stone measured 20 mm in greatest dimension. The stone was round. It was hyperechoic and characterized by shadowing. There was no sign of significant endosonographic abnormality in the visualized portion of the liver. Homogeneous parenchyma was identified. There was no sign of significant endosonographic abnormality in the entire pancreas. The pancreatic duct measured up to 2 mm in diameter. There was no sign of significant endosonographic abnormality in the visualized portion of the left adrenal gland. There was no sign of significant endosonographic abnormality involving the celiac trunk. Impression: - There was no sign of significant pathology in the ampulla. - One stone was visualized endosonographically in the common bile duct. - One large size stone and sludge was visualized endosonographically in the gallbladder. - There was no evidence of significant pathology in the visualized portion of the liver. - There was no sign of significant pathology in the entire pancreas. - Endosonographic images of the left adrenal gland were unremarkable. - The celiac trunk was endosonographically normal. Recommendation: - Perform an ERCP today. Nurys Peterson MD 04/17/2019 4:06:01 PM This report has been signed electronically. Note Initiated On: 04/17/2019 2:12 PM Number of Addenda: 0 I attest to the content of the Intraoperative Record and orders documented therein, exceptions below {[id number]}
[2019-04-17] MEDS ORDERED: GLUCAGON FOR INJ 1 MG VIAL ONE (16:11)
--- NOTE | 2019-04-17 16:12 | Fluoroscopy Report ---
[place] ERCP biliary ductal CLINICAL HISTORY: 53 years-old Female presenting with ERCP. TECHNIQUE: Fluoroscopy was provided for endoscopic retrograde cholangiopancreatography. 9 fluoroscopi c image(s) recorded. COMPARISON: Right upper quadrant ultrasound from 04/16/2019. FINDINGS: Procedure: An endoscope projects over the descending duodenum with a microcatheter inserted into the pancreatic duct as well as the common bile duct. The common bile duct microcatheter was advanced to t he level of the intrahepatic ducts. The biliary tree was opacified resulting in opacification of the cystic duct and gallbladder lumen indicating the absence of a cystic duct obstruction. Subsequently p lastic duct stents were placed in both the common bile duct and pancreatic duct. Peritoneal spillage: No evidence of peritoneal spillage of contrast. Extrahepatic bile ducts: The common bile duct is normal in course and caliber. No identifiable fillin g defects confidently visualized within the common bile duct. Contrast extends into the small bowel. Intrahepatic bile ducts: There is no intrahepatic bile duct dilatation. Fluoroscopy dosage (mGy): 28.18. Fluoroscopy time: 130.9 seconds. Number or time of high level fluoroscopy (HLF), digital spot, or digital subtraction images: 0. IMPRESSION: Plastic common bile duct and pancreatic duct stents placed. ACT 112: Negative or not required by law. Electronically signed by: Stewart Loera M.D. 04/17/2019 4:10 PM
--- NOTE | 2019-04-17 16:20 | GI REPORT ---
Patient Name: Geovanna Alcantara Procedure Date: 04/17/2019 2:16 PM Date of : 1965 Admit Type: Inpatient Age: 53 Gender: Female Attending MD: Nurys Peterson MD Procedure: ERCP Providers: Nurys Peterson MD Referring MD: Mercedes Walker Indications: Abdominal pain of suspected biliary origin, Abnormal endoscopic ultrasound of the biliary system, For therapy of bile duct stone(s), Elevated liver enzymes Medicines: Propofol per Anesthesia Complications: No immediate complications. Estimated Blood Loss: Estimated blood loss: none. Procedure: Pre-Anesthesia Assessment: - Prior to the procedure, a History and Physical was performed, and patient medications, allergies and sensitivities were reviewed. The patient's tolerance of previous anesthesia was reviewed. - The risks and benefits of the procedure and the sedation options and risks were discussed with the patient. All questions were answered and informed consent was obtained. - Patient identification and proposed procedure were verified prior to the procedure by the physician and the nurse. The procedure was verified in the procedure room. - Pre-procedure physical examination revealed no contraindications to sedation. After obtaining informed consent, the scope was passed under direct vision. Throughout the procedure, the patient's blood pressure, pulse, and oxygen saturations were monitored continuously. The Scope was introduced through the mouth, and advanced to the duodenum and used to inject contrast into the bile duct. The ERCP was accomplished without difficulty. The patient tolerated the procedure well. Findings: The director of scout work film was normal. The esophagus was successfully intubated under direct vision. The scope was advanced to a normal major papilla in the descending duodenum without detailed examination of the pharynx, larynx and associated structures, and upper GI tract. The upper GI tract was grossly normal. The ventral pancreatic duct was inadvertently cannulated with the short-nosed traction sphincterotome and guidewire without any complications. The guidewire was kept in place. A 0.035 inch straight standard wire was passed into the biliary tree. The Fusion OMNI sphincterotome was passed over the guidewire and the bile duct was then deeply cannulated. Contrast was injected. I personally interpreted the bile duct images. Ductal flow of contrast was adequate. Image quality was adequate. Contrast extended to the main bile duct. Opacification of the main bile duct, cystic duct and intrahepatic branches was successful. The maximum diameter of the ducts was 6 mm. Biliary sphincterotomy was made with a monofilament traction (standard) sphincterotome using ERBE electrocautery. There was no post-sphincterotomy bleeding. The biliary tree was swept with an 11.5 mm balloon starting at the bifurcation. One stone was removed. No stones remained. One 5 Fr by 9 cm plastic pancreatic stent with a single external pigtail and no internal flaps was placed into the ventral pancreatic duct. Clear fluid flowed through the stent. The stent was in good position. One 10 Fr by 9 cm plastic biliary stent with a single external flap and a single internal flap was placed into the common bile duct. Bile flowed through the stent. The stent was in good position. Indomethacin 100 mg was given via suppository to decrease the risk of post-ERCP pancreatitis (PEP). Impression: - Choledocholithiasis was found. Complete removal was accomplished by biliary sphincterotomy and balloon extraction. - One plastic pancreatic stent was placed into the ventral pancreatic duct. - One plastic biliary stent was placed into the common bile duct. Recommendation: - Return patient to hospital [facility] for ongoing care. - Avoid aspirin and nonsteroidal anti-inflammatory medicines for 5 days. - Refer to a surgeon today for cholecystectomy. - Repeat ERCP in 4 - 6 weeks to remove stent. Nurys Peterson MD 04/17/2019 4:19:29 PM This report has been signed electronically. Note Initiated On: 04/17/2019 2:16 PM Number of Addenda: 0 I attest to the content of the Intraoperative Record and orders documented therein, exceptions below {[id number]}
--- NOTE | 2019-04-17 16:27 | Anesthesiology Progress Note ---
Date of Service April 17, 2019 Anesthesia Post Procedure Vital Signs Vital Signs: Temp Pulse Pulse Pulse Resp BP Pulse Ox 04/17/19 16:15 91 H 18 118/86 100 04/17/19 16:05 94 H 21 132/86 100 04/17/19 15:57 36 C L 110 H 20 113/91 99 04/17/19 14:23 37 C 87 18 152/93 H 97 04/17/19 11:01 36.7 C 80 16 136/87 93 04/17/19 08:36 80 04/17/19 07:19 36.9 C 86 16 126/74 98 04/17/19 03:14 36.7 C 84 16 108/73 93 04/16/19 22:57 64 04/16/19 21:57 36.7 C 77 18 120/75 97 04/16/19 19:23 36.7 C 76 20 143/89 H 94 Transfer of Care Handoff Completed per policy Notes Mental Status: alert / awake / arousable and participated in evaluation Patient Amnestic to Procedure: Yes Nausea / Vomiting: adequately controlled Pain: adequately controlled Airway Patency, RR, SpO2: stable & adequate BP & HR: stable & adequate Hydration State: stable & adequate Anesthetic Complications: no major complications apparent
[2019-04-17] MEDS ORDERED: Nursing to Pharmacy Communication ONE (16:55)
--- NOTE | 2019-04-17 16:56 | Cardiology Consultation ---
Date of Consultation April 17, 2019 Assessment & Plan (1) SVT (supraventricular tachycardia): She has a long history of SVT which is increasing in frequency although typically remains relatively short-lived. It has been recorded on multiple occasions on a recent event monitor, including the onset. Although statistically the most likely cause arrhythmia would be AV [place] reentry not all of the onsets are clearly diagnostic of this. 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 I did discuss options with her, she did not feel good on metoprolol so beta- blockers will probably not be a good option and less we use Bystolic which is often better tolerated. She seems to need antihypertensive therapy. Another option would be a calcium chloe, I would prefer to try that before trying a different beta-chloe. She is agreeable. I am thinking of this as a temporary solution and a test to see whether we can suppress it with medical therapy, she is interested in ablation therapy and I think it is a reasonable option in her case. Once she has stabilized from her GI standpoint we can consider evaluation for that procedure. (2) Cardiomyopathy: She appears to have a mild cardiomyopathy based on echocardiography, although a recent echocardiogram through the [place] office did not seem to show that. I need to further evaluate that, we may end up repeating it when she is over her current illness to see whether it is consistently decreased. Her ejection fraction is only mildly reduced. (3) Chest pain: Her chest pain is unlikely to be cardiac in nature, I suspect it is gastrointestinal. However with left ventricular dysfunction we may need to exclude coronary disease in the future. Certainly does not seem to be an acute event based on her negative troponin and normal electrocardiogram. In future if her ejection fraction remains reduced we may want to consider stress testing but I would not do that now. History of Present Illness Reason for Consultation: SVT Attending Physician: Mercedes Walker MD History of Present Illness This is a 53-year-old woman who presents to the emergency room with abdominal discomfort as well as chest discomfort. Her discomfort radiates to her back. Evaluation includes CT of the chest with no aneurysm or evidence of pulmonary embolism. This suggest a GI etiology. She also has a history of SVT and has been evaluated for that through [facility]. She wore an event monitor from November 05, 2018 through December 04, 2018 which showed periods of tachycardia associated with symptoms of her heart racing with heart rates up to 195 bpm lasting up to 30 seconds. I have reviewed the recordings and the mechanism is clear. During this hospitalization she has not had symptoms of palpitations, of note on her event recorder she did describe chest pain at various times last fall. Echocardiography suggests mild left ventricular dysfunction this admission. Her troponins however are negative and her electrocardiogram is unremarkable. Her symptoms of chest discomfort this admission are not exertional. Allergies Allergy/AdvReac Type Severity Reaction Status Date / Time No Known Allergies Allergy Verified 05/01/19 09:38 Home Medications Home Medications Medication Instructions Recorded Confirmed Type lisinopril 10 mg PO QAM 04/15/19 05/01/19 History venlafaxine 37.5 mg PO QAM 04/15/19 05/01/19 History diltiazem HCl 180 mg PO QAM #30 cap 04/19/19 05/01/19 Rx Patient History Medical History Depression Diastolic dysfunction Grade 1, EF 45-50% Hypertension (Chronic) Hypertension Surgical History (Updated 04/18/19 @ 14:25 by Chelo Cristina RN) S/P laparoscopic cholecystectomy (04/18/19) Laparoscopic Cholecystectomy Dr. Khan 04-18-19 Family History Other No significant family history Social History Preferred Language: Setswana Communication Ability: Effective Shipping Hand Required: No Beliefs That Will Affect Care: None Current Living Situation: Family Feels Safe at Home: Yes Smoking Status: Never smoker Second Hand Exposure: No ; Hx Alcohol Use: No Hx Substance Use: No Review of Systems Review of Systems: All systems reviewed & are unremarkable except as noted in HPI & below Physical Exam Physical Exam: Constitutional: Alert, cooperative and in no distress. HEENT: Unremarkable Neck: No jugular venous distention, carotid pulses are normal and equal bilaterally without bruits. Pulmonary: Clear to auscultation bilaterally. Cardiac: Regular rhythm with no murmur, gallop or rub. Abdomen: Soft, moderately tender with normal bowel sounds. Extremities: No edema. Distal pulses intact. Neurologic: No focal findings. Gait is steady. Skin: No rash, ecchymoses or petechiae. Results & Data ([facility]) Vital Signs (Past 12 Hours) Vital Signs Temp Pulse Pulse Pulse Resp BP Pulse Ox 04/17/19 16:41 36.6 C 94 H 18 148/98 H 99 04/17/19 16:15 91 H 18 118/86 100 04/17/19 16:05 94 H 21 132/86 100 04/17/19 15:57 36 C L 110 H 20 113/91 99 04/17/19 14:23 37 C 87 18 152/93 H 97 04/17/19 11:01 36.7 C 80 16 136/87 93 04/17/19 08:36 80 04/17/19 07:19 36.9 C 86 16 126/74 98 Laboratory Results Cardiac Enzymes 04/17/19 Range/Units 05:31 AST 712 H (15-37) U/L CBC 04/17/19 Range/Units 05:31 WBC 3.45 L (4.8-10.8) K/uL RBC 3.89 L (4.2-5.4) M/uL Hgb 12.4 (12.0-16.0) g/dL Hct 35.9 L (37-47) % Plt Count 193 (130-400) K/uL Neut # (Auto) 1.73 (1.4-6.5) K/uL Lymph # (Auto) 1.24 (1.2-3.4) K/uL [place] # (Auto) 0.37 (0.11-0.59) K/uL Eos # (Auto) 0.10 (0-0.5) K/uL Baso # (Auto) 0.01 (0-0.2) K/uL Comprehensive Metabolic Panel 04/17/19 Range/Units 05:31 Sodium 140 (136-145) mmol/L Potassium 4.2 (3.5-5.1) mmol/L Chloride 109 H (98-107) mmol/L Carbon Dioxide 27 (21-32) mmol/L BUN 9 D (7-18) mg/dl Creatinine 0.83 (0.6-1.2) mg/dl Glucose 86 (70-99) mg/dl Calcium 9.0 (8.5-10.1) mg/dl AST 712 H (15-37) U/L ALT 1110 H (12-78) U/L Alkaline Phosphatase 137 H (45-117) U/L Total Protein 6.5 (6.4-8.2) gm/dl Albumin 3.1 L (3.4-5.0) gm/dl Intake and Output 04/17/19 04/17/19 04/17/19 06:59 14:59 22:59 Intake Total 1200 / 1200 Output Total 700 / 1400 Balance -700 / 380 1200 / 1200 Intake: IV Perioperative 1200 / 1200 Output: Urine 700 / 1400 Other: Other Intake Source NPO Weight 75.2 kg Patient Weight 04/18/19 06:59 Weight 75.2 kg Diagnostic Findings An electrocardiogram here on admission demonstrates sinus rhythm at 87 bpm, the WI interval is not short and there is no evidence of preexcitation. Bypass tract is unlikely but possible as a retrograde conducting pathway. Echocardiography: This was done on April 16, 2019 and left ventricular function is felt to me mildly reduced. This appears to be global hypokinesis. In comparison she did have an echocardiogram done at [facility] I believe it their local office, that is reported as normal. Telemetry: Sinus rhythm, no SVT here PG Care Time/CCT Total # of Minutes Spent Total Time Spent with Patient: Total time spent is greater than 50% in coordination of care (as documented) at patient's floor/unit and/or counseling patient: Coding Level of Care Code 44298 Inpt Consult Level 4 Diagnoses SVT (supraventricular tachycardia) I47.1 Cardiomyopathy I42.9 Chest pain R07.9 Chest pain type: unspecified (1) Chest pain Chest pain type: unspecified Qualified Code(s): R07.9 - Chest pain, unspecified
[2019-04-17] MEDS: TRAMADOL HCL 50 MG TABLET PO PRN ×2 (18:14→18:16)
[2019-04-18 06:16] LABS: Basophils # (auto) 0.01 K/uL (0-0.2); Basophils % (auto) 0.1 %; Eosinophils # (auto) 0.03 K/uL (0-0.5); Eosinophils % (auto) 0.4 %; Hematocrit (blood only) 37.5 % (37-47); Hemoglobin 13.1 g/dL (12.0-16.0); Immature Granulocytes # (auto) 0.02 K/uL (0.00-0.02); Immature Granulocytes % (auto) 0.3 %; Lymphocytes % (auto) 17.3 %; Mean Corpuscular Hemoglobin 32.1 pg (25-34); Mean Corpuscular Hgb Conc 34.9 g/dL (32-36); Mean Corpuscular Volume 91.9 fL (80-100); Monocytes # (auto) 0.58 K/uL (0.11-0.59); Monocytes % (auto) 8.4 %; Neutrophils # (auto) 5.08 K/uL (1.4-6.5); Neutrophils % (auto) 73.5 %; Platelet Count 203 K/uL (130-400); RDW Coefficient of Variation 11.7 % (11.5-14.5); RDW Standard Deviation 39.7 fL (36.4-46.3); Red Blood Count 4.08 M/uL (4.2-5.4); White Blood Count 6.92 K/uL (4.8-10.8)
[2019-04-18 06:45] LABS: Albumin Level 3.2 gm/dl (3.4-5.0); BUN Creatinine Ratio 15.2 (10-20); Creatinine Clr Calc Pharmacy 75.7 ml/min; Est GFR (African American) 86.3; Est GFR (Non-African American) 74.5
[2019-04-18 06:52] LABS: Albumin Globulin Ratio 0.9 (0.9-2); Bilirubin,Total 0.8 mg/dl (0.2-1); Globulin 3.7 gm/dl (2.5-4.0); Total Protein 6.9 gm/dl (6.4-8.2)
--- NOTE | 2019-04-18 07:24 | Anesthesiology Progress Note ---
Date of Service April 18, 2019 Anesthesia Post Procedure Vital Signs Vital Signs: Temp Pulse Pulse Pulse Resp BP Pulse Ox 04/18/19 07:04 36.7 C 69 16 117/74 97 04/18/19 03:49 36.4 C L 75 17 106/65 97 04/17/19 23:31 36.7 C 84 17 118/73 95 04/17/19 18:51 36.5 C 89 19 148/93 H 96 04/17/19 16:58 94 H 04/17/19 16:41 36.6 C 94 H 18 148/98 H 99 04/17/19 16:15 91 H 18 118/86 100 04/17/19 16:05 94 H 21 132/86 100 04/17/19 15:57 36 C L 110 H 20 113/91 99 04/17/19 14:23 37 C 87 18 152/93 H 97 04/17/19 11:01 36.7 C 80 16 136/87 93 04/17/19 08:36 80 Notes Mental Status: alert / awake / arousable and participated in evaluation Patient Amnestic to Procedure: Yes Nausea / Vomiting: adequately controlled Pain: adequately controlled Airway Patency, RR, SpO2: stable & adequate BP & HR: stable & adequate Hydration State: stable & adequate Anesthetic Complications: no major complications apparent and Pt Satisfied with anesthetic care
[2019-04-18] MEDS ORDERED: LACTATED RINGER'S 1,000 ML IV SCH (07:45)
--- NOTE | 2019-04-18 07:46 | History & Physical Report ---
Date of Service April 18, 2019 Assessment & Plan (1) Cholelithiasis: POD 1 ERCP, stone extraction Will plan for laparoscopic cholecystectomy today. as above. discussed options/risks ( bleeding/infection/injury to another organ/bile duct injury or leaks/dvt/pe/mi/cva etc...) questions answered. pt agreees. will proceed with lap/poss open cholecystectomy. History of Present Illness Primary Care Provider: ASUNCION Perez 53 y/o female admitted three days ago for epigastric/atypical chest pain. LFT's were elevated and U/S showed cholelithiasis with any inflammatory changes. She had ERCP yesterday, feels better this morning. No previous abdominal surgery or biliary symptoms. Allergies Allergy/AdvReac Type Severity Reaction Status Date / Time No Known Allergies Allergy Verified 04/15/19 19:33 Home Medications Home Medications Medication Instructions Recorded Confirmed Type lisinopril 10 mg PO QAM 04/15/19 04/15/19 History venlafaxine 37.5 mg PO QAM 04/15/19 04/15/19 History Past Med/Surg History Medical History Depression Diastolic dysfunction Grade 1, EF 45-50% Hypertension (Chronic) Hypertension Family History Other No significant family history Social History Preferred Language: [place] Islander Communication Ability: Effective Motor Vehicle Dispatcher Required: No Beliefs That Will Affect Care: None Current Living Situation: Family Other Information That Helps Us Care for You: No Feels Safe at Home: Yes Safety Concerns: Feels Safe At This Time Smoking Status: Never smoker Do You Dip or Chew Tobacco: No ; Second Hand Exposure: No ; Tobacco Cessation Education Requested by Patient: No Hx Alcohol Use: No Hx Substance Use: No Review of Systems Constitutional: no fever and no chills Gastrointestinal: + abdominal pain, + nausea and + vomiting Physical Exam Constitutional: WD/WN, vitals as above Respiratory: normal respiratory effort, lungs clear to auscultation Cardiovascular: RRR, no murmur, no edema Gastrointestinal (Abdomen): Inspection/Auscultation: abdomen not distended Percussion/Palpation: abdomen soft; abdomen nontender and no guarding Results & Data Vital Signs (Past 12 Hours) Vital Signs Temp Pulse Resp BP Pulse Ox 04/18/19 07:04 36.7 C 69 16 117/74 97 04/18/19 03:49 36.4 C L 75 17 106/65 97 04/17/19 23:31 36.7 C 84 17 118/73 95 Code Status & VTE Plan VTE Prophylaxis Plan VTE Prophylaxis will be ordered: Yes PG Care Time/CCT Total # of Minutes Spent Total Time Spent with Patient: Total time spent is greater than 50% in coordination of care (as documented) at patient's floor/unit and/or counseling patient: Coding Level of Care Code 08408 Initial Inpt Care Lvl 3 Diagnoses Cholelithiasis K80.20
[2019-04-18] MEDS: lisinopriL 10 MG TAB PO SCH (08:02)
[2019-04-18] MEDS: dilTIAZem HCL 180 MG CAPCR PO SCH (08:02)
[2019-04-18] MEDS: DICYCLOMINE HCL 10 MG CAP PO SCH ×2 (08:02→20:03)
[2019-04-18] MEDS: VENLAFAXINE HCL 37.5 MG TAB PO SCH (08:02)
[2019-04-18] MEDS: FAMOTIDINE 20 MG in SYRINGE 3 ML IV SCH ×2 (08:03→20:07)
[2019-04-18] MEDS: ASPIRIN 81 MG ECTAB PO SCH (08:16)
--- NOTE | 2019-04-18 09:27 | Gastroenterology Progress Note ---
Date of Service April 18, 2019 Assessment & Plan (1) Acute epigastric pain: 53-year-old female who presented with acute epigastric/middle back pain w/ rise in her transaminases overnight, and cholelithiasis found on abdominal imaging. She is s/p EGD?EUS/ERCP on 04/17/2019 - choledocholithiasis found, removed via biliary sphincterectomy and balloon extraction. Biliary and pancreatic stents placed. She has large gallstone and sludge noted in gallbladder. Planned for possible lap cholecystectomy by Surgery today. LFTs trending down. - NPO for possible lap cholecystectomy by Surgery today - Trend LFTs - Avoid NSAIDs and ASA 5 days after sphincterectomy - KUB in 2 week's time to assess pancreatic stent's position - Repeat ERCP in 4-6 week's time to remove biliary stent - GI will sign off; recall prn (2) Transaminitis: Admission and Anticipated Discharge Date Admission Date: April 16, 2019 Supervising Physician Co-Signing Physician Notes I performed a history and physical examination of the patient today, including specifically on physical exam - soft abdomen. I have discussed the patient's management with the advanced practitioner. Please refer to the nurse practitioner's note for the documented findings and plan of care. Subjective Pt feels well, very mild RUQ abd discomfort. Denies any fever, chills, abd pain, n/v. Tolerated CL diet last night. NPO currently for possible lap cholecystectomy this morning. Review of Systems Review of Systems: All systems reviewed & are unremarkable except as noted in HPI & below Physical Exam Constitutional: WD/WN, vitals as above well groomed, cooperative and comfortable Eyes: PERRL, conjunctivae normal, anicteric sclerae ENMT: external ear and nose normal, oropharynx normal Respiratory: normal respiratory effort, lungs clear to auscultation Cardiovascular: RRR, no murmur, no edema Gastrointestinal (Abdomen): normal bowel sounds, soft, nontender, no hepatosplenomegaly Skin: no rashes, warm and dry no jaundice Neurologic: Motor/Sensory: no asterixis Psychiatric: A+Ox3, euthymic affect Lymphatic: no lymphedema Results & Data ([facility]) Vital Signs (Past 12 Hours) Vital Signs Temp Pulse Resp BP Pulse Ox 04/18/19 07:04 36.7 C 69 16 117/74 97 04/18/19 03:49 36.4 C L 75 17 106/65 97 04/17/19 23:31 36.7 C 84 17 118/73 95
[2019-04-18] MEDS ORDERED: PROPOFOL IV EMULSION 10 MG/ML 20 ML VIAL IV ONE (11:22)
[2019-04-18] MEDS ORDERED: ONDANSETRON INJ 2 MG/ML 2 ML VIAL ONE ×2 (11:22→12:47)
[2019-04-18] MEDS ORDERED: ROCURONIUM BROMIDE 10 MG/ML 5 ML VIAL ONE (11:22)
[2019-04-18] MEDS ORDERED: LIDOCAINE HCL 2% 2 ML VIAL/AMP(20MG/ML) INFIL ONE (11:22)
[2019-04-18] MEDS ORDERED: fentaNYL citrate 100 MCG/2 ML VIAL ONE ×2 (11:23→12:33)
[2019-04-18] MEDS ORDERED: MIDAZOLAM HCL 1 MG/ML 2ML VIAL ONE (11:23)
[2019-04-18] MEDS ORDERED: BUPIVACAINE/EPINEPHRINE 0.5% MPF 1:200,000 10 ML VIAL ONE (11:31)
--- NOTE | 2019-04-18 11:34 | Anesthesiology Consultation ---
Date of Service April 18, 2019 Assessment & Plan (1) Encounter for pre-operative examination: Chart Review Chart Review: Acceptable Risk for Surgery and Patient NOT seen in Pre Admission Testing Consults Requested none History Surgery Operation Date: 04/17/19 07:30 Proposed Procedures p Endoscopic Retrograde Cholangiopancreatogram, - Nurys Peterson MD s Upper Endoscopic Ultrasonography - Nurys Peterson MD Operation Date: 04/18/19 11:10 Proposed Procedures p Laparoscopic Cholecystectomy - Cliff Khan DO Height/Weight Height: 5 ft 6 in Weight: 75 kg Allergies Allergy/AdvReac Type Severity Reaction Status Date / Time No Known Allergies Allergy Verified 04/15/19 19:33 Medications Home Medications Medication Instructions Recorded Confirmed Last Taken lisinopril 10 mg PO QAM 04/15/19 04/15/19 04/15/19 venlafaxine 37.5 mg PO QAM 04/15/19 04/15/19 04/15/19 Active Medications Generic Name Dose Route Start Last Admin Trade Name Freq PRN Reason Stop Dose Admin Aspirin 81 mg 04/16/19 09:00 04/18/19 08:16 Ecotrin Ectab PO 05/16/19 08:59 Not Given QAM KENISHA Dicyclomine HCl 10 mg 04/15/19 22:02 04/18/19 08:02 Bentyl PO 05/15/19 22:01 10 mg BID KENISHA Administration Diltiazem HCl 180 mg 04/18/19 09:00 04/18/19 08:02 Cardizem Cd PO 05/18/19 08:59 180 mg QAM KENISHA Administration Hydralazine HCl 5 mg 04/15/19 22:02 04/16/19 08:11 Apresoline PO 05/15/19 22:01 5 mg TID PRN Administration high BP Famotidine 20 mg/ Syringe 5 mls @ 2.5 mls/min 04/16/19 09:00 04/18/19 08:03 IV 05/16/19 08:59 2.5 mls/min BID KENISHA Administration Lactated Ringer's 1,000 mls @ 75 mls/hr 04/18/19 07:45 04/18/19 08:01 Lr IV 05/18/19 07:44 100 mls/hr .[id number] KENISHA Administration Lisinopril 10 mg 04/16/19 09:00 04/18/19 08:02 Zestril PO 05/16/19 08:59 10 mg QAM KENISHA Administration Ondansetron HCl 4 mg 04/15/19 22:02 04/16/19 15:05 Zofran IV 05/15/19 22:01 4 mg Q6H PRN Administration Nausea Polyethylene Glycol 17 gm 04/15/19 22:02 04/16/19 19:38 Miralax Powder Packet PO 05/15/19 22:01 17 gm DAILY PRN Administration Constipation Tramadol HCl 50 mg 04/15/19 22:02 04/17/19 18:16 Ultram PO 05/15/19 22:01 50 mg Q4H PRN Administration Pain Venlafaxine HCl 37.5 mg 04/16/19 09:00 04/18/19 08:02 Effexor PO 05/16/19 08:59 37.5 mg QAM KENISHA Administration NPO Date Last Intake of Fluids: 04/17/19 Time Last Intake of Fluids: 20:00 Date Last Intake of Solids: 04/17/19 Time Last Intake of Solids: 20:00 Past Medical History Medical History Depression Diastolic dysfunction Grade 1, EF 45-50% Hypertension (Chronic) Hypertension Past Family History Family History Other No significant family history Social History Smoking Status: Never smoker Do You Dip or Chew Tobacco: No Hx Alcohol Use: No alcohol intake frequency: holidays/special occasions only Hx Substance Use: No substance use type: does not use Physical Exam Vital Signs Last Vital Signs Temp 36.7 C 04/18/19 11:20 Pulse 83 04/18/19 11:20 Resp 18 04/18/19 11:20 BP 134/83 04/18/19 11:20 Pulse Ox 95 04/18/19 11:20 Testing Laboratory Results 04/18/19 05:37 04/18/19 05:37 PT 10.7 Seconds (9.0-12.0) 04/15/19 19:36 INR 1.0 (0.9-1.1) 04/15/19 19:36 APTT 25.9 Seconds (21.0-31.0) 04/15/19 19:36 Hemoglobin A1c 5.2 % (4.5-5.6) 04/16/19 04:13 Urine Color Dark Yellow 04/16/19 12:30 Urine Appearance Clear (Clear) 04/16/19 12:30 Urine pH 6.0 (4.5-7.5) 04/16/19 12:30 Ur Specific [place] 1.015 (1.000-1.030) 04/16/19 12:30 Urine Protein Negative (Negative) 04/16/19 12:30 Urine Glucose (UA) Negative (Negative) 04/16/19 12:30 Urine Ketones Negative (Negative) 04/16/19 12:30 Urine Nitrite Negative (Negative) 04/16/19 12:30 Ur Leukocyte Esterase Trace (Negative) H 04/16/19 12:30 Urine WBC (Auto) 1-5 /hpf (0-5) 04/16/19 12:30 Urine RBC (Auto) 0-4 /hpf (0-4) 04/16/19 12:30 U Hyaline Cast (Auto) 0 /lpf (0-5) 04/16/19 12:30 U Epithel Cells (Auto) >30 /lpf (0-5) H 04/16/19 12:30 Urine Bacteria (Auto) Negative (Negative) 04/16/19 12:30 Electrocardiogram Date: 04/15/19 Findings: + NSR @ (87) Chest X-Ray Date: 04/15/19 [facility] [place] [phone] XRay Report Patient: CHANTEL CHRISTIANSEN AAdmit Date: 04/15/19 MR#: [id number] [facility] Acct ID:[id number]: Date: 1965[facility] Zip: [place] [address] Age: 53Location: ED Sex: F Room/Bed: Att Phy:Diagnosis: BACK PAIN, UPPER GASTRIC PAIN, MILD SOB Kimi Phy: Terri Deng CRNPService Date: 04/15/19 Fam Phy:Interpreting Phy: Alexander Anne MD Admit Phy: Ordering Phy: Daniele Correa M.D. cc: ~ SINGLE VIEW CHEST CLINICAL HISTORY: Atypical chest pain. FINDINGS: An AP, portable, upright chest radiograph is obtained. No prior studies are available for comparison at the time of dictation. The examination is degraded by portable technique and patient rotation. The cardiomediastinal silhouette is unremarkable. There is mild bibasilar atelectasis. The lungs and pleural spaces are otherwise clear. No pneumothorax is seen. The bony thorax is grossly intact. IMPRESSION: No active disease in the chest. ACT 112: Negative or not required by law. Electronically signed by: Alexander Anne M.D. 04/15/2019 7:37 PM Dictated: 04/15/191935 Transcribed: 04/15/191935 Echocardiogram Date: 04/16/19 EF: 45-50 Other Findings: + diastolic dysfunction (grade 1) Valvular Disease: + no significant valvular disease
[2019-04-18] MEDS ORDERED: ePHEDrine sulfate 50 MG/ML AMP IV PRN (11:41)
[2019-04-18] MEDS ORDERED: ONDANSETRON INJ 2 MG/ML 2 ML VIAL IV PRN (11:41)
[2019-04-18] MEDS ORDERED: HYDROmorphone INJ 1 MG/ML SYRINGE IV PRN (11:41)
[2019-04-18] MEDS ORDERED: fentaNYL citrate 100 MCG/2 ML VIAL IV PRN (11:41)
[2019-04-18] MEDS ORDERED: SCOPOLAMINE 1.5 MG TDSY ONE (11:41)
[2019-04-18] MEDS ORDERED: PROMETHAZINE HCL 12.5 MG in SODIUM CHLORIDE 0.9% 50 ML IV PRN (11:41)
[2019-04-18] MEDS ORDERED: SCOPOLAMINE 1.5 MG TDSY TD ONE (11:41)
[2019-04-18] MEDS ORDERED: ATROPINE SULFATE 0.1 MG/ML 10ML SYR IV PRN (11:41)
[2019-04-18] MEDS ORDERED: ESMOLOL HCL INJ 10 MG/ML 10ML VIAL IV ONE (12:28)
[2019-04-18] MEDS ORDERED: DEXAMETHASONE SOD INJ 4 MG/ML VIAL ONE (12:28)
[2019-04-18] MEDS ORDERED: METOPROLOL TARTRATE 1 MG/ML VIAL IV ONE (12:34)
[2019-04-18] MEDS ORDERED: GLYCOPYRROLATE 0.2 MG/ML VIAL ONE (12:47)
[2019-04-18] MEDS ORDERED: NEOSTIGMINE METHYLSULFATE 5 MG/5 ML SYR ONE (12:47)
--- NOTE | 2019-04-18 12:54 | Operative Report ---
PG Post Operative Report Pre & Post Diagnosis Operation Date: 04/17/19 07:30 Pre-Op Diagnosis: abdominal pain Post-Op Diagnosis: abdominal pain Operation Date: 04/18/19 11:10 Pre-Op Diagnosis: gallstones Post-Op Diagnosis: Cholecystitis/gallstones I identified the patient and participated in the time-out.: Yes Procedure Operation Date: 04/17/19 07:30 Actual Procedures p Endoscopic Retrograde Cholangiopancreatogram with Stent Insertion,(Not Applicable) - Nurys Peterson MD s Upper Endoscopic Ultrasonography, Upper Gastrointestinal Endoscopy(Not Applicable) - Nurys Peterson MD Operation Date: 04/18/19 11:10 Actual Procedures p Laparoscopic Cholecystectomy(Not Applicable) - Cliff Khan DO Surgeon Cliff Khan DO [employer] ada Mayes Estimated Blood Loss 5 Findings Consistent with Post-Op Diagnosis Specimens gallbladder Description of Procedure After informed consent was obtained the patient was taken to the operating room and placed in the supine position. After successful intubation the abdomen was sterilely prepped and draped in usual fashion. A periumbilical incision was made with an 11 blade scalpel and carried down through the soft tissue using electrocautery. The anterior rectus fascia was opened using electrocautery and 2 #0 Vicryl stay sutures were placed. The peritoneum was elevated with hemostats and incised under direct vision using Metzenbaum scissors. A finger sweep was performed and a 12 mm Bailey trocar was placed. The abdomen was insufflated to 18 mmHg. The laparoscope was inserted and the abdomen was examined in 360. No gross abnormalities were identified. A subxiphoid 5 mm port and 2 right upper quadrant 5 mm ports were placed under direct vision. The patient was placed in a reverse Trendelenburg position and slightly airplaned to the left. The gallbladder was grasped and elevated superiorly and laterally. A [place] dissector was used to take down adhesions around the neck of the gallbladder. The cystic duct was identified and skeletonized. It was clipped twice proximally and once distally and transected using a laparoscopic scissor. In similar fashion the cystic artery was identified and skeletonized clipped and divided. The gallbladder was removed from the gallbladder fossa with electrocautery. There was a fair amount of edema in the wall of the gallbladder indicating some amount of cholecystitis. It was placed into an Endo Catch bag. Thorough irrigation was performed. At the end of the procedure there was adequate hemostasis and no evidence of any bile leaks. A final look around the abdomen showed no other abnormalities. The gallbladder and trochars were all removed and the abdomen was desufflated. The fascia of the camera port was closed using 0 Vicryl in a [id number] fashion. All the wounds were i rrigated and closed using 4-0 Monocryl. Marcaine was injected around them for postoperative analgesia and skin glue used as a dressing. The patient was awaken extubated and transferred to recovery in stable condition. My physician's operations administrative assistant was present throughout the entire case... helped with prepping the patient. With exposure for trocar placement, as well as retracted the gallbladder throughout the case and also assisted with wound closure and dressing placement. I attest to the content of the Intraoperative Record and any orders documented therein. Any exceptions are noted below.
--- NOTE | 2019-04-18 13:38 | Anesthesiology Progress Note ---
Date of Service April 18, 2019 Anesthesia Post Procedure Vital Signs Vital Signs: Temp Pulse Pulse Pulse Resp BP Pulse Ox 04/18/19 13:25 36.4 C L 88 15 126/77 94 04/18/19 13:15 92 H 15 127/80 97 04/18/19 13:05 36.1 C L 103 H 16 144/91 H 96 04/18/19 11:20 36.7 C 83 18 134/83 95 04/18/19 07:04 36.7 C 69 16 117/74 97 04/18/19 03:49 36.4 C L 75 17 106/65 97 04/17/19 23:31 36.7 C 84 17 118/73 95 04/17/19 18:51 36.5 C 89 19 148/93 H 96 04/17/19 16:58 94 H 04/17/19 16:41 36.6 C 94 H 18 148/98 H 99 04/17/19 16:15 91 H 18 118/86 100 04/17/19 16:05 94 H 21 132/86 100 04/17/19 15:57 36 C L 110 H 20 113/91 99 04/17/19 14:23 37 C 87 18 152/93 H 97 Transfer of Care Handoff Completed per policy Notes Mental Status: alert / awake / arousable and participated in evaluation Patient Amnestic to Procedure: Yes Nausea / Vomiting: adequately controlled Pain: adequately controlled Airway Patency, RR, SpO2: stable & adequate BP & HR: stable & adequate Hydration State: stable & adequate Anesthetic Complications: no major complications apparent and Pt Satisfied with anesthetic care
[2019-04-18] MEDS ORDERED: MoRPHine SULFATE 2 MG/ML CARP IV PRN (14:00)
[2019-04-18] MEDS ORDERED: HYDROCODONE/ACETAMOPHEN 5/325MG TAB PO PRN ×2 (14:00)
[2019-04-18] MEDS: LACTATED RINGER'S 1,000 ML IV SCH (14:17)
--- NOTE | 2019-04-18 15:04 | Hospitalist Progress Note ---
Date of Service April 18, 2019 Assessment & Plan (1) Acute epigastric pain: Geovanna is a 53-year-old female who presented to the emergency room with acute middle back pain radiating to the epigastric area and chest. She then developed a significant acute transaminitis and cholelithiasis was observed on initial CT angiogram. She did not have evidence of an obstructive pattern at the time of admission, but ALP has been trending upward, which is consistent with the findings on liver ultrasound of cholelithiasis and biliary sludge Acute Epigastric Pain -Liver ultrasound confirmed cholelithiasis and showed biliary sludge. No evidence of acute cholecystitis. -Gastroenterology consulted. ERCP 04/16- choledocholothiasis found. One stent placed in ventral pancreatic duct. One stent placed in CBD. Will repeat ERCP in 4-6 wks to remove stent. KUB in 2 week's time to assess pancreatic stent's position -04/17 Laparoscopic Cholecystectomy -Avoid ASA and NSAIDs for 5 days -Continue to monitor LFTs, CBC, and BMP -Continue Dicyclomine 10 mg BID and Ondansetron PRN -Continue Acetaminophen 650 mg PRN and Ketorolac 15 mg IV PRN -Continue Famotidine 20 mg IV BID -AST peaked at 1187 and currently downtrending. ALT peaked at 1175 and is also downtrending -T bili normalized SVT - long history of SVT which is increasing in frequency , recorded on multiple occasions on a recent event monitor -?AV [place] reentrant SVT -pt previously on BB, but did not feel good so dc'd -cont diltiazem 180mg . Temporary solution, will consider ablation therapy evaluation in future -appreciate Cardiology recs Hypertension: -Continue lisinopril 10 mg PO every morning. Added diltiazem 180mg as above -Discussion with patient suggests blood pressure is not well-controlled at home. Recommend outpatient follow up for tighter blood pressure control Atypical chest pain-resolved -The patient was admitted to PCU on telemetry for observation of atypical chest pain and rule out of acute coronary syndrome. -Troponin I negative x 3 -Lipid Panel reviewed. statin not indicated at this time -Hemoglobin A1c 5.7 -Echocardiogram performed which showed mild reduction in LV function, mild global hypokinesia of LV, EF 40-50%, and Grade I diastolic dysfunction. No evidence of valvular disease. -Will consider removing ASA moving forward as does not appear to be ACS related CP Diastolic dysfunction: Patient received echocardiogram during workup of atypical chest pain which revealed grade I diastolic dysfunction and several other structural changes compared to her most recent echocardiogram that was performed in November. -Consider sleep study to investigate the possibility of obstructive apnea being an underlying cause of the structural heart changes and supraventricular tachycardia -Metoprolol originally prescribed in November due to Holter monitor results. discontinued due to unspecified negative side effects as above Depression: -Continue Venlafaxine 37.5 mg PO every morning FEN/GI: Clears, graduate as tolerated. DVT Prophylaxis: Lovenox 40 mg daily Full Code Disposition: Tele. Anticipate d/c tomorrow. Admission and Anticipated Discharge Date Admission Date: April 16, 2019 Supervising Physician Co-Signing Physician Notes Resident Physician Supervision Note: I independently interviewed and examined the patient and verified the anna history and physical, reviewed labs and image studies, discussed the case with the resident Dr. Bermudez and agree with the findings and care plan. Subjective Pt feels well, very mild RUQ abd discomfort. Denies any fever, chills, abd pain, n/v. NPO currently for possible lap cholecystectomy this morning. No other acute concerns or complaints. Review of Systems Review of Systems: All systems reviewed & are unremarkable except as noted in HPI & below Physical Exam Constitutional: WD/WN, vitals as above Eyes: PERRL, conjunctivae normal, anicteric sclerae ENMT: external ear and nose normal, oropharynx normal Respiratory: normal respiratory effort, lungs clear to auscultation Cardiovascular: RRR, no murmur, no edema Gastrointestinal (Abdomen): Percussion/Palpation: + abdomen tender (mild ttp ruq) Skin: no rashes, warm and dry Psychiatric: A+Ox3, euthymic affect Results & Data ([facility]) Vital Signs (Past 12 Hours) Vital Signs Temp Pulse Resp BP Pulse Ox 04/18/19 14:48 36.8 C 80 19 111/71 94 04/18/19 14:01 37.2 C 85 18 117/71 99 04/18/19 13:35 92 H 18 128/78 96 04/18/19 13:25 36.4 C L 88 15 126/77 94 04/18/19 13:15 92 H 15 127/80 97 04/18/19 13:05 36.1 C L 103 H 16 144/91 H 96 04/18/19 11:20 36.7 C 83 18 134/83 95 04/18/19 07:04 36.7 C 69 16 117/74 97 04/18/19 03:49 36.4 C L 75 17 106/65 97 Laboratory Results Laboratory Results - last 24 hr 04/18/19 04/18/19 05:37 05:37 WBC 6.92 RBC 4.08 L Hgb 13.1 Hct 37.5 MCV 91.9 MCH 32.1 MCHC 34.9 RDW Std Deviation 39.7 RDW Coeff of [place] 11.7 Plt Count 203 MPV 10.0 Immature Gran % (Auto) 0.3 Neut % (Auto) 73.5 Lymph % (Auto) 17.3 [place] % (Auto) 8.4 Eos % (Auto) 0.4 Baso % (Auto) 0.1 Immature Gran # (Auto) 0.02 Neut # (Auto) 5.08 Lymph # (Auto) 1.20 [place] # (Auto) 0.58 Eos # (Auto) 0.03 Baso # (Auto) 0.01 Sodium 139 Potassium 4.0 Chloride 107 Carbon Dioxide 28 Anion Gap 5.0 BUN 13 Creatinine 0.88 Est Cr Clr Drug Dosing 75.7 Est GFR ( Amer) 86.3 Est GFR (Non-Af Amer) 74.5 BUN/Creatinine Ratio 15.2 Glucose 93 Calcium 9.0 Total Bilirubin 0.8 D AST 311 H ALT 813 H Alkaline Phosphatase 134 H Total Protein 6.9 Albumin 3.2 L Globulin 3.7 Albumin/Globulin Ratio 0.9 Medications Administered Current Inpatient Medications Hydrocodone Bitart/Acetaminophen ([place] 5/325) 1 tab PO Q4H PRN PRN Reason: Pain Stop: 05/02/19 13:59 Hydrocodone Bitart/Acetaminophen ([place] 5/325) 2 tab PO Q4H PRN PRN Reason: Pain Stop: 05/02/19 13:59 Al Hydrox/Mg Hydrox/Simethicone (Maalox) 15 ml PO Q4H PRN PRN Reason: Dyspepsia Stop: 05/15/19 22:01 Aspirin (Ecotrin Ectab) 81 mg PO QAM [facility] Stop: 05/16/19 08:59 Last Admin: 04/18/19 08:16 Dose: Not Given Documented by: Dicyclomine HCl (Bentyl) 10 mg PO BID [facility] Stop: 05/15/19 22:01 Last Admin: 04/18/19 08:02 Dose: 10 mg Documented by: Diltiazem HCl (Cardizem Cd) 180 mg PO QAM [facility] Stop: 05/18/19 08:59 Last Admin: 04/18/19 08:02 Dose: 180 mg Documented by: Hydralazine HCl (Apresoline) 5 mg PO TID PRN PRN Reason: high BP Stop: 05/15/19 22:01 Last Admin: 04/16/19 08:11 Dose: 5 mg Documented by: Famotidine 20 mg/ Syringe 5 mls @ 2.5 mls/min IV BID [facility] Stop: 05/16/19 08:59 Last Admin: 04/18/19 08:03 Dose: 2.5 mls/min Documented by: Lactated Ringer's (Lr) 1,000 mls @ 80 mls/hr IV .[id number] [facility] Stop: 05/18/19 13:59 Last Admin: 04/18/19 14:17 Dose: 80 mls/hr Documented by: Ketorolac Tromethamine (Toradol) 15 mg IV Q6H PRN PRN Reason: Pain Stop: 04/20/19 22:01 Lisinopril (Zestril) 10 [facility] Stop: 05/16/19 08:59 Last Admin: 04/18/19 08:02 Dose: 10 mg Documented by: Magnesium Hydroxide (Milk Of Magnesia) 30 ml PO Q12H PRN PRN Reason: Constipation Stop: 05/15/19 22:01 Miscellaneous (Check Scopolamine Patch Placement) 1 ea N/A QS [facility] Stop: 04/19/19 08:00 Miscellaneous (Remove Transderm-Scop Patch) 1 ea N/A Q24H [facility] Stop: 04/19/19 12:01 Morphine Sulfate (Morphine Sulfate) 2 mg IV Q2H PRN PRN Reason: Pain Stop: 05/02/19 13:59 Nitroglycerin (Nitrostat) 0.4 mg SL UD PRN PRN Reason: Chest Pain Stop: 05/15/19 22:01 Ondansetron HCl (Zofran) 4 mg IV Q6H PRN PRN Reason: Nausea Stop: 05/15/19 22:01 Last Admin: 04/16/19 15:05 Dose: 4 mg Documented by: Polyethylene Glycol (Miralax Powder Packet) 17 gm PO DAILY PRN PRN Reason: Constipation Stop: 05/15/19 22:01 Last Admin: 04/16/19 19:38 Dose: 17 gm Documented by: Venlafaxine HCl (Effexor) 37.5 mg PO QAWW [facility] Stop: 05/16/19 08:59 Last Admin: 04/18/19 08:02 Dose: 37.5 mg Documented by: Resident Activity Tracking Resident Involvement: Resident Care Provided Care Provided: Adult Hospital Medicine
[2019-04-18] MEDS: CHECK SCOPOLAMINE PATCH PLACEMENT SCH ×2 (16:10→23:30)
[2019-04-18] MEDS: KETOROLAC TROMETHAMINE 15 MG/ML VIAL IV PRN (16:10)
[2019-04-19] MEDS: LACTATED RINGER'S 1,000 ML IV SCH (01:18)
[2019-04-19 05:56] LABS: Hematocrit (blood only) 35.9 % (37-47); Hemoglobin 12.2 g/dL (12.0-16.0); Immature Granulocytes # (auto) 0.02 K/uL (0.00-0.02); Immature Granulocytes % (auto) 0.2 %; Lymphocytes # (auto) 0.91 K/uL (1.2-3.4); Lymphocytes % (auto) 10.9 %; Mean Corpuscular Hemoglobin 31.2 pg (25-34); Mean Corpuscular Volume 91.8 fL (80-100); Mean Platelet Volume 9.8 fL (7.4-10.4); Monocytes # (auto) 0.57 K/uL (0.11-0.59); Monocytes % (auto) 6.8 %; Neutrophils # (auto) 6.83 K/uL (1.4-6.5); Neutrophils % (auto) 82.1 %; Platelet Count 180 K/uL (130-400); Red Blood Count 3.91 M/uL (4.2-5.4); White Blood Count 8.33 K/uL (4.8-10.8)
[2019-04-19 06:31] LABS: Albumin Globulin Ratio 0.9 (0.9-2); BUN Creatinine Ratio 11.5 (10-20); Bilirubin Direct 0.2 mg/dl (0-0.2); Bilirubin,Total 0.6 mg/dl (0.2-1); Calcium 8.7 mg/dl (8.5-10.1); Creatinine Clr Calc Pharmacy 84.7 ml/min; Est GFR (African American) 98.4; Est GFR (Non-African American) 84.9; Globulin 3.5 gm/dl (2.5-4.0); Potassium 3.9 mmol/L (3.5-5.1); Total Protein 6.5 gm/dl (6.4-8.2)
[2019-04-19] MEDS: KETOROLAC TROMETHAMINE 15 MG/ML VIAL IV PRN (07:27)
[2019-04-19] MEDS: CHECK SCOPOLAMINE PATCH PLACEMENT SCH (07:27)
--- NOTE | 2019-04-19 08:18 | Anesthesiology Progress Note ---
Date of Service April 19, 2019 Anesthesia Post Procedure Vital Signs Vital Signs: Temp Pulse Pulse Resp BP Pulse Ox 04/19/19 06:58 36.6 C 67 16 137/84 95 04/19/19 04:00 36.7 C 85 20 134/81 95 04/18/19 18:50 36.5 C 82 19 119/77 94 04/18/19 16:00 79 04/18/19 14:48 36.8 C 80 19 111/71 94 04/18/19 14:01 37.2 C 85 18 117/71 99 04/18/19 13:35 92 H 18 128/78 96 04/18/19 13:25 36.4 C L 88 15 126/77 94 04/18/19 13:15 92 H 15 127/80 97 04/18/19 13:05 36.1 C L 103 H 16 144/91 H 96 04/18/19 11:20 36.7 C 83 18 134/83 95 Pain Intensity Bilateral Abdomen: Pain Intensity: 2 Notes Mental Status: alert / awake / arousable and participated in evaluation Patient Amnestic to Procedure: Yes Nausea / Vomiting: adequately controlled Pain: adequately controlled Airway Patency, RR, SpO2: stable & adequate BP & HR: stable & adequate Hydration State: stable & adequate Anesthetic Complications: no major complications apparent and Pt Satisfied with anesthetic care
[2019-04-19] MEDS: ASPIRIN 81 MG ECTAB PO SCH (09:08)
[2019-04-19] MEDS: dilTIAZem HCL 180 MG CAPCR PO SCH (09:08)
[2019-04-19] MEDS: DICYCLOMINE HCL 10 MG CAP PO SCH (09:08)
[2019-04-19] MEDS: lisinopriL 10 MG TAB PO SCH (09:08)
[2019-04-19] MEDS: VENLAFAXINE HCL 37.5 MG TAB PO SCH (09:09)
[2019-04-19] MEDS: FAMOTIDINE 20 MG in SYRINGE 3 ML IV SCH (09:12)
--- NOTE | 2019-04-19 09:52 | Surgery Progress Note ---
Date of Service April 19, 2019 Assessment & Plan (1) Cholelithiasis: POD#1 laparoscopic cholecystectomy LFT's downtrending, WBC 8.3 patient clinically feeling well tolerating advances in diet, will order reg diet for lunch surgical incisions c/d/i will leave discharge instructions for pt to f/u in clinic within [address] Bill oropeza for dispo from our standpoint, pending medicine as above. doing well. ok for d/c. instructions given. Subjective Patient feeling well. Has some abdominal soreness, but is tolerable when she takes her prn medications. Tolerating advances in diet without n/v. Physical Exam Physical Exam: awake/alert Constitutional: well developed and well nourished Respiratory: normal respiratory effort Gastrointestinal (Abdomen): Inspection/Auscultation: + abdomen distended (minimally) and + abdominal surgical incision (c/d/i with dermabond over top, some dried blood at umbilical incision) Percussion/Palpation: abdomen soft; abdomen nontender Results & Data Vital Signs (Past 12 Hours) Vital Signs Temp Pulse Pulse Resp BP Pulse Ox 04/19/19 08:26 74 04/19/19 06:58 36.6 C 67 16 137/84 95 04/19/19 04:00 36.7 C 85 20 134/81 95 PG Care Time/CCT Total # of Minutes Spent Total Time Spent with Patient: Total time spent is greater than 50% in coordination of care (as documented) at patient's floor/unit and/or counseling patient: Coding Level of Care Code None Diagnoses Cholelithiasis K80.20
--- NOTE | 2019-04-19 10:09 | Discharge Summary ---
Date of Service April 19, 2019 Admission HPI Per Admitting Provider The patient is a 53 years old female with past medical history of hypertension and depression who presents to the emergency room with a complaint of chest pain that started this morning first in her back and then radiated to her middle chest and then settled down in her abdomen. Patient reports having 1 bowel movement yesterday. Patient said that this is normal for her. Patient also said that this pain occurred all of a sudden and lasted pretty much several hours. Patient denies smoking history. Denies any recent sick contact or travel. Patient denies fever, chills, abdominal pain, frequency, urgency, syn cope, near syncope. The labs are reviewed: Sodium 138, potassium 3.4, chloride 105, anion gap 5, BUN 19, creatinine 0.84, GFR 78.8, calcium 9.6, total bilirubin 0.3, AST 72, ALT 56, alkaline phosphatase 83, troponin 0.015, total protein 7.6, albumin 3.6, globulin 4, lipase 237, TSH pending. CTA of the chest there is no aneurysm or dissection seen involving the thoracic or abdominal aorta. There is no evidence of pulmonary embolus in the main lobar or segmental pulmonary arteries. The lungs are clear. Unremarkable CT angiogram of the major branches of the abdominal aorta. No acute infectious or or inflammatory findings are identified in the abdomen or pelvis, cholelithiasis. Chest x-ray showed no active disease in the chest. The decision was made to admit patient to PCU on telemetry for observation of the chest pain versus acute coronary syndrome. Principal Diagnosis cholilithiasis Discharge Exam Constitutional WD/WN, vitals as above Eyes PERRL, conjunctivae normal, anicteric sclerae ENMT external ear and nose normal, oropharynx normal Respiratory normal respiratory effort, lungs clear to auscultation Cardiovascular RRR, no murmur, no edema Gastrointestinal (Abdomen) Percussion/Palpation: + abdomen tender (mild ttp ruq) surgical incisions c/d/i Skin no rashes, warm and dry Psychiatric A+Ox3, euthymic affect Discharge Data Allergies Allergy/AdvReac Type Severity Reaction Status Date / Time No Known Allergies Allergy Verified 04/15/19 19:33 Consultations 04/15/19 20:35 ED Decision to Admit Stat 04/16/19 09:54 Consult Gastroenterology Routine 04/16/19 16:04 Consult Cardiology Routine 04/17/19 15:55 Consult General Surgery Routine Procedures Performed Operation Date: 04/17/19 07:30 Actual Procedures p Endoscopic Retrograde Cholangiopancreatogram with Stent Insertion,(Not Applicable) - Nurys Peterson MD s Upper Endoscopic Ultrasonography, Upper Gastrointestinal Endoscopy(Not Applicable) - Nurys Peterson MD Operation Date: 04/18/19 11:10 Actual Procedures p Laparoscopic Cholecystectomy(Not Applicable) - Cliff Khan, DO Ordered Studies 04/15/19 19:15 CT angio abdomen pelvis w con Stat CT angio chest dissec wo/w con Stat 04/16/19 09:54 US liver Routine 04/17/19 07:30 FL ERCP biliary ductal Routine 04/17/19 14:06 US upper EUS PACS images Routine Hospital Course (1) Acute epigastric pain: Geovanna is a 53-year-old female who presented to the emergency room with acute middle back pain radiating to the epigastric area and chest. She then developed a significant acute transaminitis and cholelithiasis was observed on initial CT angiogram. She did not have evidence of an obstructive pattern at the time of admission, but with findings on liver ultrasound of cholelithiasis and biliary sludge. The following is the medical management during stay here: Acute Epigastric Pain-resolved -Liver ultrasound confirmed cholelithiasis and showed biliary sludge. No evidence of acute cholecystitis. -Gastroenterology consulted. ERCP 04/16- choledocholithiasis found. One stent placed in ventral pancreatic duct. One stent placed in CBD. Will repeat ERCP in 4-6 wks to remove stent. KUB in 2 week's time to assess pancreatic stent's position. GI will arrange for this and outpt f/u -04/17 Laparoscopic Cholecystectomy- f/u in clinic within [address] Khan -Avoid ASA and NSAIDs for 5 days -script given for [facility] for pain control -AST peaked at 1187 and currently downtrending. ALT peaked at 1175 and is also downtrending -T bili normalized SVT - long history of SVT which is increasing in frequency , recorded on multiple occasions on a recent event monitor -?AV [place] reentrant SVT -pt previously on BB, but did not feel good so dc'd -cont diltiazem 180mg . Temporary solution, will consider ablation therapy evaluation in future -Cards to f/u outpt Hypertension: -Continue lisinopril 10 mg PO every morning. Added diltiazem 180mg as above -Discussion with patient suggests blood pressure is not well-controlled at home. Recommend outpatient follow up for tighter blood pressure control Atypical chest pain-resolved -The patient was admitted to PCU on telemetry for observation of atypical chest pain and rule out of acute coronary syndrome. -Troponin I negative x 3 -Lipid Panel reviewed. statin not indicated at this time -Hemoglobin A1c 5.7 -Echocardiogram performed which showed mild reduction in LV function, mild global hypokinesia of LV, EF 40-50%, and Grade I diastolic dysfunction. No evidence of valvular disease. Diastolic dysfunction: Patient received echocardiogram during workup of atypical chest pain which revealed grade I diastolic dysfunction and several other structural changes compared to her most recent echocardiogram that was performed in November. -Consider sleep study to investigate the possibility of obstructive apnea being an underlying cause of the structural heart changes and supraventricular tachycardia -Metoprolol originally prescribed in November due to Holter monitor results. However, patient discontinued due to unspecified negative side effects as above Depression: -Continue Venlafaxine 37.5 mg PO every morning DVT Prophylaxis: Lovenox 40 mg daily. At time of d/c, pt had no other acute concerns or complaints. Total Time Total Time Spent Total Time Spent (In Minutes): 30 Discharge Plan Discharge Items Patient Disposition: Home - Self-Care Reason For Visit: CHEST PAIN Discharge Diagnosis: laparoscopic cholecystectomy Activity: Per Instructions section Lifting: No more than 10 pounds Bathing Comment: may shower starting 04/19/19; no soaking in tubs Exercise/Sports: Wait until after follow-up appointment Driving/Machine Use: do not resume driving while taking narcotics for pain Non-emergency contact: Primary Care Provider Call non-emergency contact if: you have any medication questions, your symptoms worsen, your pain is not controlled, your pain is unusual for you, you have a fever, your temperature is above 101.5, your wound has increased redness, your wound has increased drainage and your wound pain has increased Follow-up/Referrals: Cliff Khan DO [Surgeon] - 05/01/19 9:30 am (Please call to schedule follow up in clinic within 2 weeks) Deejay Dyson MD [Resident] - 04/23/19 10:30 am Nurys Peterson MD [Hospitalist] - (Please, follow up at [facility] with Dr. Peterson. *A nurse from this office will call you with the appointment information. If you have any questions, call the office at [phone]. THIS APPOINTMENT WILL BE AT [address] [facility] IN [place].) Diet: Regular Addtl Attending Provider Instructions: You were admitted with concerns of belly pain and were found to have a stone in your gallbladder, which was removed via surgery. Please follow the below instructions on discharge: -We have sent pain medication to your pharmacy ([facility]). If you need additional refills, please follow up with your PCP. Also see your PCP within one week of discharge for normal hospital follow up -You will have a follow up appt with surgeon Dr. Khan in 2 weeks. They will reach out to you with details -You have started a new medication here for your heart palpitations-- Diltiazem 180 mg to be taken every morning. Cardiology will reach out to you about a future appt Pending Studies at Discharge: Yes Studies:: surgical pathology Stand-Alone Forms: My [facility] [employer], Smoking Cessation Medications and DC Order Prescriptions: New hydrocodone-acetaminophen [[place]] 5-325 mg tablet 1 - 2 tab PO .q4-6h PRN (Reason: pain, for initial therapy, max 6 tabs per day) Qty: 15 RF: 0 diltiazem HCl 180 mg Capsule,Extended Release 24hr 180 mg PO QAM Qty: 30 RF: 0 Continued venlafaxine 37.5 mg tablet 37.5 mg PO QAM RF: 0 lisinopril 10 mg tablet 10 mg PO QAM RF: 0 Discharge Orders: Discharge Order (Routine); Ordered 04/19/19 Ordered By: Maurizio Bermudez Admission Data Admit Date/Time: 04/16/19 15:16 Attending Provider: Mercedes Walker Admit Provider: Emmie Pugh Primary Care Provider: Terri Deng Other Providers: Emmie Pugh ; Malka Colbert ; Paul Piña ; Kermit Osborne ; Cliff Khan Other Interventions: Discharge Summary Assessment (RN) Last Done: 04/19/19 11:08 DC Date/Time DO NOT enter until pt leaves facility: 04/19/19 12:40 Supervising Physician Co-Signing Physician Notes Resident Physician Supervision Note: I independently interviewed and examined the patient and verified the anna history and physical, reviewed labs and image studies, discussed the case with the resident Dr. Bermudez and agree with the findings and care plan. Resident Activity Tracking Resident Involvement: Resident Care Provided Care Provided: Adult Hospital Medicine
== END 2019-04-19 12:40 | disposition home or self-care (01) | DRG 418 ==
LOC: 2S 18:59 → ED 18:59 → SUATTDRO 20:50 → 2S 21:32
DX: E87.6 Hypokalemia; I10 Essential (primary) hypertension; I47.1 Supraventricular tachycardia; F32.9 Major depressive disorder, single episode, unspecified; R74.0 Nonspecific elevation of levels of transaminase and lactic acid dehydrogenase [LDH]; I42.9 Cardiomyopathy, unspecified; Z79.899 Other long term (current) drug therapy; K80.70 Calculus of gallbladder and bile duct without cholecystitis without obstruction